=== PATIENT | female | born 1955 | race Caucasian/White ===

== ENCOUNTER → 2022-04-25 09:58 | Outpatient (CLI) | payer MEDICARE, SELFPAY ==
--- NOTE | ~2022-04-25 | XR_ITS ---
XR foot RT min 3V DATE: 04/25/2022 11:03 INDICATION: Right foot pain TECHNIQUE: 4 views COMPARISON: None FINDINGS: There is osteopenia. Os tibiale externum, normal variant. Very slight plantar calcaneal enthesopathy. No recent fracture or dislocation, periosteal reaction or bone destruction. No erosive change. IMPRESSION: Osteopenia Slight plantar calcaneal enthesopathy Reviewed, dictated and finalized at location A.
== END ==
PROVIDERS: PCP Physician Assistant; Visit Provider Physician Assistant
DX: M79.671 Pain in right foot (principal); M85.88 Other specified disorders of bone density and structure, other site; M77.31 Calcaneal spur, right foot
CPT/HCPCS: 73630

== ENCOUNTER 2022-05-31 21:22 | Emergency (ER) | payer MEDICARE, SELFPAY ==
[2022-05-31 21:26] VITALS: BP 138/72; PULSE 69; RESP 16; TEMP 36.8; O2SAT 98
--- NOTE | 2022-05-31 21:58 | ED.GENADULT ---
HPI - General Adult General Chief complaint: Wound/Laceration Stated complaint: insect bite ?? Time Seen by Provider: 05/31/22 21:57 History of Present Illness HPI narrative: 67-year-old female presented the emergency department for evaluation of an insect bite to her left lateral hip. Patient states she was mowing the grass when she felt a sting to her left hip. Patient became concerned because when she checked the wound she saw that it was a red area with a central white region. Patient states it does still feel like a sting. Related Data Allergies Allergy/AdvReac Type Severity Reaction Status Date / Time No Known Allergies Allergy Verified 05/31/22 21:23 Review of Systems Review of Systems: CONSTITUTIONAL: Denies fever, chills, or sweats. EYES: Denies visual changes, redness, or discharge. ENT: Denies rhinorrhea, congestion, sore throat, or otalgia. CARDIOVASCULAR: Denies chest pain, palpitations, or edema. RESPIRATORY: Denies cough or dyspnea. GASTROINTESTINAL: Denies abdominal pain, nausea, vomiting, or diarrhea. GENITOURINARY: Denies dysuria or hematuria. SKIN: See HPI MUSCULOSKELETAL: Denies back pain, joint pain, or myalgia. NEUROLOGIC: Denies headache, numbness, or weakness. PSYCHIATRIC: Denies anxiety or depression. [facility] Family History Family History (Updated 06/08/14 @ 07:13 by DOCTOR UNKNOWN) Mother Family history of elevated blood lipids Family history of hypothyroidism Social History Social History Smoking status: Never smoker Alcohol intake: never Exam Narrative: APPEARANCE: Well appearing, no pain, no distress, well-nourished. HEAD: normocephalic, atraumatic. RESPIRATORY: Airway patent, respirations nonlabored. Clear to auscultation bilaterally, no rales, rhonchi, wheezing. CARDIOVASCULAR: Regular rate and rhythm without murmurs rubs or gallops. ABDOMINAL: Soft, nontender, nondistended, normal bowel sounds MUSCULOSKELETAL: Moves all extremities. Strength/ROM intact, No edema, No calf tenderness. NEURO: Alert. Cranial nerves II through XII intact. Grossly intact SKIN: 1 cm area of erythema with a central 2 mm area of white PSYCHIATRIC: Normal affect/mood. Course Course Emergency Course: Central head was opened using an 18-gauge. Only serosanguineous fluid was drained. Wound was cleaned. Injection was applied. Patient was educated on wound care and on the importance of close follow-up. All questions and concerns were addressed. Vital Signs Vital signs: Vital Signs Temperature 98.3 F 05/31/22 21:26 Pulse Rate 69 05/31/22 21:26 Respiratory Rate 16 05/31/22 21:26 Blood Pressure 138/72 05/31/22 21:26 Pulse Oximetry 98 05/31/22 21:26 Oxygen Delivery Room Air 05/31/22 21:26 Temperature 98 F 05/31/22 22:15 Pulse Rate 69 05/31/22 21:26 Respiratory Rate 16 05/31/22 22:15 Blood Pressure 122/80 05/31/22 22:15 Pulse Oximetry 100 05/31/22 22:15 Oxygen Delivery Room Air 05/31/22 21:26 Medical Decision Making Vital Signs Vital Signs: Vital Signs Temperature 98.3 F 05/31/22 21:26 Pulse Rate 69 05/31/22 21:26 Respiratory Rate 16 05/31/22 21:26 Blood Pressure 138/72 05/31/22 21:26 Pulse Oximetry 98 05/31/22 21:26 Oxygen Delivery Room Air 05/31/22 21:26 Temperature 98 F 05/31/22 22:15 Pulse Rate 69 05/31/22 21:26 Respiratory Rate 16 05/31/22 22:15 Blood Pressure 122/80 05/31/22 22:15 Pulse Oximetry 100 05/31/22 22:15 Oxygen Delivery Room Air 05/31/22 21:26 Discharge Plan Discharge Clinical Impression: Insect bite Patient Disposition: Home, Self-Care Condition: Stable Instructions: Antibiotic Form, Insect Bite or Sting (ED) Additional Instructions: Wound care as directed. have close follow-up with your primary care physician. Follow-up/Referrals: Tucker,TOMAS Benavidez [Primary Care Provider] -
[2022-05-31 22:15] VITALS: BP 122/80; RESP 16; TEMP 36.6; O2SAT 100
== END 2022-05-31 22:17 | disposition home or self-care (01) ==
LOC: ANHED 22:10
PROVIDERS: Emergency Provider Emergency Medicine; PCP Physician Assistant
DX: S00.561A Insect bite (nonvenomous) of lip, initial encounter (principal); W57.XXXA Bitten or stung by nonvenomous insect and other nonvenomous arthropods, initial encounter
CPT/HCPCS: 99282

== ENCOUNTER 2024-04-30 10:13 | Emergency (ER) | payer MEDICARE, SELFPAY ==
[2024-04-30] VITALS (10 sets, daily range): BP systolic 130–154; BP diastolic 64–72; PULSE 49–56; RESP 12–19; TEMP 36.3; O2SAT 98–100
--- NOTE | ~2024-04-30 | CT_ITS ---
EXAMINATION: CTA chest abdomen pelvis DATE: 04/30/2024 12:09 CDT INDICATION: Concern for dissection. TECHNIQUE: Computed tomographic angiography (CTA) of the chest, abdomen, and pelvis was performed wit hout and with 100 mL Omnipaque-350 intravenous contrast. The dose-length product was 443.56 mGy-cm. M aximum intensity projection 3D-reconstructions of the aorta and other arteries were constructed by brandon olivo technologist on a separate workstation. Automated exposure control and iterative reconstruction coni hnique were employed. COMPARISON: CT abdomen dated 07/19/2008. FINDINGS: CHEST CTA: No evidence for aortic aneurysm or dissection. Heart size normal. No significant pleural or pericardi al effusion. No thoracic lymphadenopathy. There are breast implants which are partially calcified. No endobronchial lesions. No pneumothorax. No focal airspace consolidation. ABDOMEN AND PELVIS CTA: The liver, spleen, pancreas, adrenal glands and kidneys are unremarkable. Bladder is unremarkable. No evidence for aortic aneurysm or dissection. The renal arteries, SMA and celiac axis are widely paten t. The SADE is patent. Nonobstructive bowel gas pattern. No lymphadenopathy. Gallbladder is present. N o free air or free fluid. IMPRESSION: 1. No acute abnormality of the chest, abdomen or pelvis. Reviewed, dictated and finalized at location B.
[2024-04-30 11:15] LABS: Basophils Absolute Auto 0.1 K/mm3 (0.0-0.1); Basophils Percent Auto 0.6 % (0.2-1.2); Eosinophils Absolute Auto 0.4 K/mm3 (0-0.3); Eosinophils Percent Auto 3.6 % (0-4.4); Hematocrit 39.5 % (37.0-47.0); Hemoglobin 13.3 g/dL (12.0-15.0); Immature Granulocyte Absolute 0.06 K/mm3 (0.00-0.031); Immature Granulocyte Percent A 0.5 % (0-0.5); Lymphocytes Absolute Auto 2.53 K/mm3 (0.9-3.2); Lymphocytes Percent Auto 23.1 % (18.3-44.2); Mean Corpuscular HGB Conc 33.7 g/dl (32-36); Mean Corpuscular Hemoglobin 31.4 pg (26-34); Mean Corpuscular Volume 93.2 fl (80-100); Monocytes Absolute Auto 0.9 K/mm3 (0.1-0.6); Monocytes Percent Auto 8.6 % (2.6-8.5); Neutrophils Percent Auto 63.6 % (45.5-73.1); Platelet Count Result 322 k/mm3 (150-375); Red Blood Count 4.24 M/mm3 (4.2-5.4); Red Cell Distribution Width 14.1 % (11.5-14.5)
[2024-04-30 11:30] LABS: Alanine Aminotransferase 25 U/L (6-35); Albumin Level 4.1 g/dL (3.5-5.1); Alkaline Phosphatase 117 U/L (38-126); Anion Gap 7 mmol/L (4-12); Aspartate Amino Transferase 24 U/L (14-36); Bilirubin,Total 0.3 mg/dL (0.2-1.3); Blood Urea Nitrogen 13 mg/dL (7-17); Carbon Dioxide 29 mmol/L (22-30); Chloride 101 mmol/L (98-107); Estimated CRCL calculation 42 ml/min; Estimated Glomerular Filt Rate > 60; Glucose 94 mg/dL (65-110); Potassium 4.3 mmol/L (3.4-5.0); Sodium 137 mmol/L (137-145)
--- NOTE | 2024-04-30 11:44 | ECG_ITS ---
Test Date: 2024-04-30 12:13:18 Measurements Intervals [place] Rate: 50 P: 73 ID: 164 QRS: 42 QRSD: 77 T: 51 QT: 442 QTc: 404 Interpretive Statements SINUS BRADYCARDIA POSSIBLE LEFT ATRIAL ENLARGEMENT BASELINE ARTIFACT- I, II BORDERLINE ECG No previous ECG available for comparison Electronically Signed On 04-30-2024 15:24:34 CDT by Ezequiel Hedrick D.O.
--- NOTE | 2024-04-30 11:45 | ED.GENADULT ---
HPI - General Adult General Chief complaint: Unspecified Stated complaint: I had an episode last night Time Seen by Provider: 04/30/24 11:33 History of Present Illness HPI narrative: 68-year-old female presents emergency department for evaluation for some back tightness and some shortness of breath that occurred yesterday. Patient states she has been taking prednisone for the last few days due to poison demond reaction. Patient has had some persistent nausea over the last few days. Patient had just been using the riding lawnmower to cut the grass when she went inside never shower, while she was in the shower she had onset of this tightness into her back and some associated shortness of breath. Patient is unsure how long the symptoms lasted. 30 minutes after the symptoms and patient checked her blood pressure was found to be lower than her normal. Upon arrival emergency department patient denies any complaints at this time. Patient denies any chest pain, back pain, abdominal pain. Patient is present with her daughters. Related Data Allergies Allergy/AdvReac Type Severity Reaction Status Date / Time No Known Allergies Allergy Verified 05/31/22 21:23 Review of Systems Review of Systems: All systems reviewed & are unremarkable except as noted in HPI and below PMFSH Family History Family History (Updated 06/08/14 @ 07:13 by DOCTOR UNKNOWN) Mother Family history of elevated blood lipids Family history of hypothyroidism Social History Social History Smoking status: Never smoker Alcohol intake: never Exam Narrative: APPEARANCE: Well appearing, no pain, no distress, well-nourished. HEAD: normocephalic, atraumatic. EYES: PERRLA/EOMI, conjunctivae clear. NOSE: Normal no drainage EARS:TMS clear with good light reflex. THROAT: Pharynx clear, no exudate. NECK: Supple. No adenopathy, no masses. RESPIRATORY: Airway patent, respirations nonlabored. Clear to auscultation bilaterally, no rales, rhonchi, wheezing. CARDIOVASCULAR: Regular rate and rhythm without murmurs rubs or gallops. ABDOMINAL: Soft, nontender, nondistended, normal bowel sounds MUSCULOSKELETAL: Moves all extremities. Strength/ROM intact, No edema, No calf tenderness. NEURO: Alert. Cranial nerves II through XII intact. SKIN: Warm, dry. Normal Color Course Vital Signs Vital signs: Vital Signs Temperature 97.4 F L 04/30/24 10:15 Pulse Rate 56 L 04/30/24 10:15 Respiratory Rate 18 04/30/24 10:15 Blood Pressure 154/72 H 04/30/24 10:15 Pulse Oximetry 100 04/30/24 10:15 Oxygen Delivery Room Air 04/30/24 10:15 Temperature 97.4 F L 04/30/24 10:15 Pulse Rate 53 L 04/30/24 15:00 Respiratory Rate 14 04/30/24 15:00 Blood Pressure 130/64 04/30/24 13:01 Pulse Oximetry 100 04/30/24 15:00 Oxygen Delivery Room Air 04/30/24 10:15 Medical Decision Making MDM Narrative Medical decision making narrative: 60-year-old female presents emergency department for evaluation for episode back tightness last night. Patient is afebrile with a minor leukocytosis of 11.0 but patient is currently on steroids and patient has a stable hemoglobin of 13.3. Patient's INR is 0.9. Patient's CMP has no acute abnormalities and patient had negative serial troponins. UA shows no evidence infection. Serial EKG showed no evidence of acute STEMI. Due to the patient complaining some low blood pressure associated with the initial symptoms a CTA was ordered and chest abdomen pelvis CTA showed no acute findings. On re-evaluation patient states he does feel improved and denies any acute complaint. Differential Diagnosis Differential Diagnosis: Pneumonia, pulmonary embolism, ACS Vital Signs Vital Signs: Vital Signs Temperature 97.4 F L 04/30/24 10:15 Pulse Rate 56 L 04/30/24 10:15 Respiratory Rate 18 04/30/24 10:15 Blood Pressure 154/72 H 04/30/24 10:15 Pulse Oximetry 100 04/30/24 10:15 Oxygen Delivery Room Air 04/30/24 10:1
[2024-04-30 11:46] LABS: Appearance Urine Clear (Clear); Bacteria Urine None Seen /hpf; Bilirubin Urine Negative (Negative); Blood Urine Trace (Negative); Color Urine Yellow (Yellow); Glucose Urine UA Negative (Negative); Ketones Urine Negative (Negative); Leukocyte Esterase Ur 2+ LEU/UL (Negative); Nitrate Urine Negative (Negative); Non Pathogenic Casts 0-2; Protein Urine Negative (Negative); RBC Urine 0-2 /hpf (0-2); Specific Grav Ur 1.008 (1.001-1.035); Squamous Epithelial Cell Urine None Seen /hpf (Few); Urobilinogen Urine 0.2 mg/dL (<2.0); pH Urine 5.5 (5.0-9.0)
[2024-04-30 11:47] LABS: Add Urine Microscopic? YES
[2024-04-30 12:05] LABS: INR 0.9; Prothrombin Time 12.7 Seconds (11.1-14.7)
[2024-04-30 12:16] LABS: Troponin I < 0.012 ng/mL (0.000-0.034)
[2024-04-30 14:47] LABS: Troponin I < 0.012 ng/mL (0.000-0.034)
--- NOTE | 2024-04-30 14:47 | ECG_ITS ---
Test Date: 2024-04-30 14:44:23 Measurements Intervals [place] Rate: 51 P: 70 ND: 167 QRS: 48 QRSD: 69 T: 58 QT: 437 QTc: 406 Interpretive Statements SINUS BRADYCARDIA POSSIBLE LEFT ATRIAL ENLARGEMENT BASELINE ARTIFACT- I, II, III, AVR, AVL BORDERLINE ECG Compared to ECG 04/30/2024 12:13:18 No significant changes Electronically Signed On 04-30-2024 15:26:11 CDT by Ezequiel Hedrick D.O.
== END 2024-04-30 15:23 | disposition home or self-care (01) ==
PROVIDERS: Emergency Provider Emergency Medicine; PCP Physician Assistant
DX: M54.9 Dorsalgia, unspecified (principal); R07.89 Other chest pain; R94.31 Abnormal electrocardiogram [ECG] [EKG]; R00.1 Bradycardia, unspecified
CPT/HCPCS: 36415; 71275; 74174; 80053; 81001; 84484; 85025; 85610; 85730; 87086; 87088; 93005; 99284; Q9967

== ENCOUNTER 2024-06-27 09:44 | Outpatient (CLI) | payer MEDICARE, SELFPAY ==
--- NOTE | 2024-06-27 | EST_ITS ---
Patient Info Name: Baylee Gonzalez Age: 69 years : 1955 Gender: Female Ht: 62 in Wt: 140 lbs BSA: 1.68 m2 HR: 54 bpm BP: 148 / 79 mmHg Exam Date: 06/27/2024 10:09 AM Exam Location: Echo Lab Patient Status: Outpatient Admit Date: 06/27/2024 Staff Ordering Physician: TuckerReema PA-C Lieutenant Ballistics: Meli Irizarry RDCS Attending Provider: ИВАН STERN NP Exercise Technologist: Yandy Cast RDCS Nurse: Иван Stern APN Exam Type: CA stress echo Study Info Indications R06.00 - Dyspnea, unspecified Treadmill exercise stress echocardiogram is performed. Summary 1. Sinus bradycardia, otherwise normal ECG. 2. No abnormal ST/T wave changes with exercise. 3. Occasional PVCs and 1 ventricular couplet. 4. Normal left ventricular size and systolic function at rest. 5. Normal hyperdynamic response to exercise, no ischemic wall motion abnormalities. 6. Negative stress echo at 92% of age predicted maximum heart rate. Protocol: Roberto Stress ECG Details Stage: REST Duration (min): 0 min : 44 sec Speed (mph): 0.0 Grade (%): 0 HR (bpm): 53 SBP (mmHg): 148 DBP (mmHg): 79 METS: --- Stage: REST Duration (min): 10 min : 13 sec Speed (mph): 0.0 Grade (%): 0 HR (bpm): 83 SBP (mmHg): 148 DBP (mmHg): 79 METS: --- Stage: STAGE 1 Duration (min): 1 min : 0 sec Speed (mph): 1.7 Grade (%): 10 HR (bpm): 99 SBP (mmHg): 148 DBP (mmHg): 79 METS: --- Stage: STAGE 1 Duration (min): 2 min : 0 sec Speed (mph): 1.7 Grade (%): 10 HR (bpm): 116 SBP (mmHg): 148 DBP (mmHg): 79 METS: --- Stage: STAGE 1 Duration (min): 3 min : 0 sec Speed (mph): 1.7 Grade (%): 10 HR (bpm): 123 SBP (mmHg): 148 DBP (mmHg): 79 METS: --- Stage: STAGE 2 Duration (min): 1 min : 0 sec Speed (mph): 2.5 Grade (%): 12 HR (bpm): 137 SBP (mmHg): 148 DBP (mmHg): 79 METS: --- Stage: STAGE 2 Duration (min): 1 min : 10 sec Speed (mph): 2.5 Grade (%): 12 HR (bpm): 136 SBP (mmHg): 148 DBP (mmHg): 79 METS: --- Stage: RECOVERY Duration (min): 0 min : 49 sec Speed (mph): 0.0 Grade (%): 0 HR (bpm): 115 SBP (mmHg): 123 DBP (mmHg): 69 METS: --- Stage: RECOVERY Duration (min): 1 min : 49 sec Speed (mph): 0.0 Grade (%): 0 HR (bpm): 81 SBP (mmHg): 123 DBP (mmHg): 69 METS: --- Stage: RECOVERY Duration (min): 2 min : 49 sec Speed (mph): 0.0 Grade (%): 0 HR (bpm): 90 SBP (mmHg): 123 DBP (mmHg): 69 METS: --- Stage: RECOVERY Duration (min): 3 min : 49 sec Speed (mph): 0.0 Grade (%): 0 HR (bpm): 69 SBP (mmHg): 123 DBP (mmHg): 69 METS: --- Stage: RECOVERY Duration (min): 4 min : 26 sec Speed (mph): 0.0 Grade (%): 0 HR (bpm): 61 SBP (mmHg): 149 DBP (mmHg): 78 METS: --- Rest HR: 83 bpm Peak HR: 139 bpm Rest Sys BP: 148 mmHg Peak Sys BP: 149 mmHg Max Pred HR: 151 bpm % Max Pred HR: 92 % Target HR:
== END 2024-06-27 09:45 | disposition home or self-care (01) ==
LOC: ANHCARD 09:45
PROVIDERS: PCP Physician Assistant; Visit Provider Physician Assistant
DX: R06.00 Dyspnea, unspecified (principal); R00.1 Bradycardia, unspecified
CPT/HCPCS: 93351

== ENCOUNTER 2025-02-09 14:16 | Outpatient (CLI) | payer MEDICARE, SELFPAY ==
--- NOTE | ~2025-02-09 | US_ITS ---
EXAM: RENAL ULTRASOUND HISTORY: Other unspecified abn findings of blood chemistry COMPARISON: Reference is made to a CT examination of the chest abdomen and pelvis dated 04/30/2024 FINDINGS: RIGHT KIDNEY: 9.3 x 3.3 x 4.8 cm. The parenchyma of the right kidney is unremarkable in echogenicity. Prominence of the right renal pelvis is identified without cody hydronephrosis. LEFT KIDNEY: 9.8 x 4.4 x 4.2 cm No hydronephrosis or renal calculi. The parenchyma of the left kidney is unremarkable in echogenicity. BLADDER: The bladder is minimally distended, and otherwise unremarkable. Bilateral ureteral jets are visualized. IMPRESSION: Prominence of the right renal pelvis without cody hydronephrosis. The renal parenchyma is unremarkable bilaterally. No renal calculi. No sonographic findings to suggest medical renal disease. Reviewed, dictated and finalized at location A.
--- OUTSIDE RECORDS SUMMARY | 2025-02-09 15:02 | XMS_ITS | Clinical Summary ---
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 Gender Identity Not on file Sexual Orientation Not on file Obstetrics History Last Filed Vital Signs Vital Sign Reading Time Taken Comments Blood Pressure 126/78 12/28/2023 12:29 PM CDT Pulse 62 12/28/2023 12:29 PM CDT Temperature 36.8 C (98.3 F) 12/28/2023 12:29 PM CDT Respiratory Rate 18 12/28/2023 12:29 PM CDT Oxygen Saturation 98% 12/28/2023 12:29 PM CDT Inhaled Oxygen Concentration - - Weight 70.3 kg (155 lb) 12/28/2023 12:29 PM CDT Height 157.5 cm (5' 2 ) 12/28/2023 12:29 PM CDT Body Mass Index 28.35 12/28/2023 12:29 PM CDT Plan of Treatment Health Maintenance Due Date Last Done Comments Breast Cancer Screening-Mammogram 1955 Colon Cancer Screening-Colonoscopy 1955 Depression Screening 1955 Fall Risk Assessment 1955 Hepatitis C Screening 1955 Osteoporosis Screening-Bone Density Scan 1955 DTaP/Tdap/Td Vaccine (1 - Tdap) 1966 Hepatitis B Screening 1973 Pneumococcal vaccine 65+ (1 of 1 - PCV) 2005 Zoster Vaccine (1 of 2) 2005 Well Visit 65+ 2020 Influenza Vaccine (Season Ended) 2025 08/11/20 13, 07/25/2013 Insurance [employer] SENIOR SU[employer]MENT MEDICARE Care Teams Shank Taper Relationship Specialty Start Date End Date Unknown, Notinfile PCP - General 12/28/23
--- OUTSIDE RECORDS SUMMARY | 2025-02-09 15:02 | XMS_ITS | Referral Summary ---
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
--- OUTSIDE RECORDS SUMMARY | 2025-02-09 15:02 | XMS_ITS | Data Portability ---
[facility] [address] [place] [address] Care Team Providers Care Fisheries Officer Name Role Phone REEMA FELIPE Primary Care Provider Unavailab le Assessment No assessment recorded. Plan of Treatment Reminders Order Date Submit Date Provider Last Modified By Organization Details Last Modified Time Details Appointments ANY 15 2024 10:00A M VALERIANO Vallejo Not available Not available Not available Lab hepatic function panel, serum 2023 025 WILIAM Carolina, [address], [place], [address], 11/09/2024 07:08:39 BMP, serum or plasma 2023 025 WIILAM Carolina, [address], [place], [address], 11/09/2024 07:08:40 CBC w/ auto diff 2023 025 WILIAM Carolina, [address], [place], [address], 11/09/2024 07:08:41 lipid panel, serum 2023 025 WILIAM Carolina, [address], [place], [address], 11/09/2024 07:08:38 TSH + free T4, serum 2023 025 WILIAM Carolina, [address], [place], [address], 11/09/2024 07:08:37 T3, free, serum or plasma 2023 025 WILIAM Carolina, [address], [place], [address], 11/09/2024 07:08:42 hepatic function panel, serum 2023 024 WILIAM Carolina, [address], [place], [address], 07/13/2024 07:15:21 BMP, serum or plasma 2023 024 WILIAM Carolina, [address], [place], [address], 07/13/2024 07:15:21 lipid panel, serum 2023 024 WILIAM Carolina, [address], [place], [address], 07/13/2024 07:15:20 TSH + free T4, serum 2023 024 WILIAM Carolina, [address], [place], [address], 07/13/2024 07:15:20 T3, free, serum or plasma 2023 024 WILIAM Carolina, [address], [place], [address], 07/13/2024 07:15:22 CBC w/ auto diff 2023 024 WILIAM Carolina [address], [place], [address], 01/29/2024 12:37:58 hepatic function panel, serum 2023 024 WILIAM Carolina, [address], [place], [address], 01/29/2024 12:37:57 BMP, serum or plasma 2023 024 [facility], [address], [place], [address], 01/29/2024 12:37:58 lipid panel, serum 2023 024 [facility], [address], [place], [address], 01/29/2024 12:37:57 TSH + free T4, serum 2023 024 [facility], [address], [place], [address], 01/29/2024 12:37:56 Referral None recorded. Procedures None recorded. Surgeries None recorded. Imaging exercise stress echocardi ogram 2023 024 [facility] (Cardiology [facility]), [facility] [address], [place], [address], 07/08/2024 13:06:56 Medication Orders levothyro xine 88 mcg tablet 2023 025 [id number], [address] [place], [address], 11/10/2024 17:40:04 doxycycli ne hyclate 100 mg capsule 2023 024 [facility][id number], [address] [place], [address], 07/14/2024 11:59:17 Patient TargetsNo targets recorded. 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 Referring Physician: Reema Felipe, Internal Medicine, Encounter Date: 01/25/2025 Results Created Date Observation Date Name Description Value Unit Range Abnormal Flag Note LastModifiedBy Organization Detail LastModifiedTime 01/28/20 24 01/29/2024 TSH+F REE T4 TSH 0.041 uIU/m L 0.450- 4.500 below low normal Not Available [facility] ([facility]) [address], [place], [address], 01/29/2024 12:37:56 01/28/20 24 01/29/2024 TSH+F REE T4 T4,free(dire ct) 1.86 NG/dL 0.82-1 .77 above high normal Not Available [facility] ([facility]) [address] [place], [address], 01/29/2024 12:37:56 01/28/20 24 01/29/2024 LIPID PANEL cholesterol, total 216 mg/dL 100-19 9 above high normal Not Available [facility] ([facility]) [address] [place], [address], 01/29/2024 12:37:57 01/28/20 24 01/29/2024 LIPID PANEL triglyceride s 80 mg/dL 0-149 Not Available [facility]) [address] [place], [address], 01/29/2024 12:37:57 01/28/20 24 01/29/2024 LIPID PANEL HDL cholesterol 73 mg/dL >39 Not Available [facility]) [address] [place], [address], 01/29/2024 12:37:57 01/28/20 24 01/29/2024 LIPID PANEL VLDL cholesterol mercedes 14 mg/dL 5-40 Not Available [facility]) [address] [place], [address], 01/29/2024 12:37:57 01/28/20 24 01/29/2024 LIPID PANEL LDL chol calc ([facility]) 129 mg/dL 0-99 above high normal Not Available [facility] ([facility]) [address] [place], [address], 01/29/2024 12:37:57 01/28/20 24 01/29/2024 HEPAT IC FUNCT ION PANEL (7) protein, total 7.2 g/dL 6.0-8. 5 Not Available [facility] ([facility]) [address] [place], [address], 01/29/2024 12:37:57 01/28/20 24 01/29/2024 HEPAT IC FUNCT ION PANEL (7) albumin 4.6 g/dL 3.9-4. 9 Not Available [facility] ([facility]) [address] [place], [address], 01/29/2024 12:37:57 01/28/20 24 01/29/2024 HEPAT IC FUNCT ION PANEL (7) bilirubin, total 0.3 mg/dL 0.0-1. 2 Not Available [facility] ([facility]) [address] [place], [address], 01/29/2024 12:37:57 01/28/20 24 01/29/2024 HEPAT IC FUNCT ION PANEL (7) bilirubin, direct <0.10 mg/dL 0.00-0 .40 Not Available [facility] ([facility]) [address] [place], [address], 01/29/2024 12:37:57 01/28/20 24 01/29/2024 HEPAT IC FUNCT ION PANEL (7) alkaline phosphatase 106 IU/L 44-121 Not Available [facility]) [address] [place], [address], 01/29/2024 12:37:57 01/28/20 24 01/29/2024 HEPAT IC FUNCT ION PANEL (7) AST (SGOT) 22 IU/L 0-40 Not Available [facility] ([facility]) [address], [place], [address], 01/29/2024 12:37:57 01/28/20 24 01/29/2024 HEPAT IC FUNCT ION PANEL (7) ALT (SGPT) 17 IU/L 0-32 Not Available [facility] ([facility]) [address], [place], [address], 01/29/2024 12:37:57 01/28/20 24 01/29/2024 BMP7+ EGFR glucose 93 mg/dL 70-99 Not Available [facility] ([facility]) [address], [place], [address], 01/29/2024 12:37:58 01/28/20 24 01/29/2024 BMP7+ EGFR BUN 12 mg/dL 8-27 Not Available [facility] ([facility]) [address], [place], [address], 01/29/2024 12:37:58 01/28/20 24 01/29/2024 BMP7+ EGFR creatinine 0.87 mg/dL 0.57-1 .00 Not Available [facility] ([facility]) [address], [place], [address], 01/29/2024 12:37:58 01/28/20 24 01/29/2024 BMP7+ EGFR eGFR 73 mL/mi n/1.7 3 >59 Not Available [facility] ([facility]) [address], [place], [address], 01/29/2024 12:37:58 01/28/20 24 01/29/2024 BMP7+ EGFR sodium 141 mmol/ L 134-14 4 Not Available [facility] ([facility]) [address], [place], [address], 01/29/2024 12:37:58 01/28/20 24 01/29/2024 BMP7+ EGFR potassium 4.8 mmol/ L 3.5-5. 2 Not Available [facility] ([facility]) [address], [place], [address], 01/29/2024 12:37:58 01/28/20 24 01/29/2024 BMP7+ EGFR chloride 102 mmol/ L 96-106 Not Available [facility] ([facility]) [address], [place], [address], 01/29/2024 12:37:58 01/28/20 24 01/29/2024 BMP7+ EGFR carbon dioxide, total 24 mmol/ L 20-29 Not Available [facility] ([facility]) [address], [place], [address], 01/29/2024 12:37:58 01/28/20 24 01/29/2024 CBC WITH DIFFE RENTI AL/PL ATELE T WBC 7.2 x10e3 /uL 3.4-10 .8 Not Available [facility] ([facility]) [address] [place], [address], 01/29/2024 12:37:58 01/28/20 24 01/29/2024 CBC WITH DIFFE RENTI AL/PL ATELE T RBC 4.39 x10e6 /uL 3.77-5 .28 Not Available [facility] ([facility]) [address] [place], [address], 01/29/2024 12:37:58 01/28/20 24 01/29/2024 CBC WITH DIFFE RENTI AL/PL ATELE T hemoglobin 13.5 g/dL 11.1-1 5.9 Not Available [facility] ([facility]) [address] [place], [address], 01/29/2024 12:37:58 01/28/20 24 01/29/2024 CBC WITH DIFFE RENTI AL/PL ATELE T hematocrit 40.5 % 34.0-4 6.6 Not Available [facility] ([facility]) [address], [place], [address], 01/29/2024 12:37:58 01/28/20 24 01/29/2024 CBC WITH DIFFE RENTI AL/PL ATELE T MCV 92 fL 79-97 Not Available [facility] ([facility]) [address], [place], [address], 01/29/2024 12:37:58 01/28/20 24 01/29/2024 CBC WITH DIFFE RENTI AL/PL ATELE T MCH 30.8 pg 26.6-3 3.0 Not Available [facility] ([facility]) [address], [place], [address], 01/29/2024 12:37:58 01/28/20 24 01/29/2024 CBC WITH DIFFE RENTI AL/PL ATELE T MCHC 33.3 g/dL 31.5-3 5.7 Not Available [facility] ([facility]) [address], [place], [address], 01/29/2024 12:37:58 01/28/20 24 01/29/2024 CBC WITH DIFFE RENTI AL/PL ATELE T RDW 12.8 % 11.7-1 5.4 Not Available [facility] ([facility]) [address], [place], [address], 01/29/2024 12:37:58 01/28/20 24 01/29/2024 CBC WITH DIFFE RENTI AL/PL ATELE T platelets 333 x10e3 /uL 150-45 0 Not Available [facility] ([facility]) [address], [place], [address], 01/29/2024 12:37:58 01/28/20 24 01/29/2024 CBC WITH DIFFE RENTI AL/PL ATELE T neutrophils 48 % notest ab. Not Available [facility] ([facility]) [address], [place], [address], 01/29/2024 12:37:58 01/28/20 24 01/29/2024 CBC WITH DIFFE RENTI AL/PL ATELE T lymphs 37 % notest ab. Not Available [facility] ([facility]) [address], [place], [address], 01/29/2024 12:37:58 01/28/20 24 01/29/2024 CBC WITH DIFFE RENTI AL/PL ATELE T monocytes 9 % notest ab. Not Available [facility] ([facility]) [address], [place], [address], 01/29/2024 12:37:58 01/28/20 24 01/29/2024 CBC WITH DIFFE RENTI AL/PL ATELE T eos 5 % notest ab. Not Available [facility] ([facility]) [address], [place], [address], 01/29/2024 12:37:58 01/28/20 24 01/29/2024 CBC WITH DIFFE RENTI AL/PL ATELE T basos 1 % notest ab. Not Available [facility] ([facility]) [address] [place], [address], 01/29/2024 12:37:58 01/28/20 24 01/29/2024 CBC WITH DIFFE RENTI AL/PL ATELE T neutrophils (absolute) 3.5 x10e3 /uL 1.4-7. 0 Not Available [facility] ([facility]) [address] [place], [address], 01/29/2024 12:37:58 01/28/20 24 01/29/2024 CBC WITH DIFFE RENTI AL/PL ATELE T lymphs (absolute) 2.6 x10e3 /uL 0.7-3. 1 Not Available [facility] ([facility]) [address] [facility] [place], [address], 01/29/2024 12:37:58 01/28/20 24 01/29/2024 CBC WITH DIFFE RENTI AL/PL ATELE T monocytes(ab solute) 0.6 x10e3 /uL 0.1-0. 9 Not Available [facility] ([facility]) [address] [place], [address], 01/29/2024 12:37:58 01/28/20 24 01/29/2024 CBC WITH DIFFE RENTI AL/PL ATELE T eos (absolute) 0.3 x10e3 /uL 0.0-0. 4 Not Available [facility] ([facility]) [address], [place], [address], 01/29/2024 12:37:58 01/28/20 24 01/29/2024 CBC WITH DIFFE RENTI AL/PL ATELE T baso (absolute) 0.1 x10e3 /uL 0.0-0. 2 Not Available [facility] ([facility]) [address] [place], [address], 01/29/2024 12:37:58 01/28/20 24 01/29/2024 CBC WITH DIFFE RENTI AL/PL ATELE T immature granulocytes 0 % notest ab. Not Available [facility] ([facility]) [address] [place], [address], 01/29/2024 12:37:58 01/28/20 24 01/29/2024 CBC WITH DIFFE RENTI AL/PL ATELE T immature grans (abs) 0.0 x10e3 /uL 0.0-0. 1 Not Available [facility] ([facility]) [address] [place], [address], 01/29/2024 12:37:58 07/12/20 24 07/13/2024 TSH+F REE T4 TSH 2.300 uIU/m L 0.450- 4.500 Not Available [facility] ([facility]) [address], [place], [address], 07/13/2024 07:15:19 07/12/2007/13/2024 TSH+F REE T4 T4,free(dire ct) 1.17 NG/dL 0.82-1 .77 Not Available [facility] ([facility]) [address], [place], [address], 07/13/2024 07:15:19 07/12/2007/13/2024 LIPID PANEL cholesterol, total 248 mg/dL 100-19 9 above high normal Not Available [facility] ([facility]) [address] [place], [address], 07/13/2024 07:15:20 07/12/20 24 07/13/2024 LIPID PANEL triglyceride s 91 mg/dL 0-149 Not Available [facility] ([facility]) [address] [place], [address], 07/13/2024 07:15:20 07/12/2007/13/2024 LIPID PANEL HDL cholesterol 70 mg/dL >39 Not Available [facility] ([facility]) [address] [place], [address], 07/13/2024 07:15:20 07/12/20 24 07/13/2024 LIPID PANEL VLDL cholesterol mercedes 16 mg/dL 5-40 Not Available [facility] ([facility]) [address] [place], [address], 07/13/2024 07:15:20 07/12/2007/13/2024 LIPID PANEL LDL chol calc ([facility]) 162 mg/dL 0-99 above high normal Not Available [facility] ([facility]) [address] [place], [address], 07/13/2024 07:15:20 07/12/20 24 07/13/2024 HEPAT IC FUNCT ION PANEL (7) protein, total 6.4 g/dL 6.0-8. 5 Not Available [facility] ([facility]) [address] [place], [address], 07/13/2024 07:15:21 07/12/20 24 07/13/2024 HEPAT IC FUNCT ION PANEL (7) albumin 4.2 g/dL 3.9-4. 9 Not Available [facility] ([facility]) [address], [place], [address], 07/13/2024 07:15:21 07/12/2007/13/2024 HEPAT IC FUNCT ION PANEL (7) bilirubin, total 0.3 mg/dL 0.0-1. 2 Not Available [facility] ([facility]) [address] [place], [address], 07/13/2024 07:15:21 07/12/2007/13/2024 HEPAT IC FUNCT ION PANEL (7) bilirubin, direct <0.10 mg/dL 0.00-0 .40 Not Available [facility] ([facility]) [address] [place], [address], 07/13/2024 07:15:21 07/12/20 24 07/13/2024 HEPAT IC FUNCT ION PANEL (7) alkaline phosphatase 109 IU/L 44-121 Not Available [facility]) [address], [place], [address], 07/13/2024 07:15:21 07/12/20 24 07/13/2024 HEPAT IC FUNCT ION PANEL (7) AST (SGOT) 18 IU/L 0-40 Not Available [facility] ([facility]) [address] [place], [address], 07/13/2024 07:15:21 07/12/20 24 07/13/2024 HEPAT IC FUNCT ION PANEL (7) ALT (SGPT) 12 IU/L 0-32 Not Available [facility] ([facility]) [address], [place], [address], 07/13/2024 07:15:21 07/12/2007/13/2024 BMP7+ EGFR glucose 88 mg/dL 70-99 Not Available [facility] ([facility]) [address], [place], [address], 07/13/2024 07:15:21 07/12/2007/13/2024 BMP7+ EGFR BUN 18 mg/dL 8-27 Not Available [facility] ([facility]) [address], [place], [address], 07/13/2024 07:15:21 07/12/2007/13/2024 BMP7+ EGFR creatinine 0.89 mg/dL 0.57-1 .00 Not Available [facility] ([facility]) [address], [place], [address], 07/13/2024 07:15:21 07/12/2007/13/2024 BMP7+ EGFR eGFR 70 mL/mi n/1.7 3 >59 Not Available [facility] ([facility]) [address], [place], [address], 07/13/2024 07:15:21 07/12/2007/13/2024 BMP7+ EGFR sodium 141 mmol/ L 134-14 4 Not Available [facility] ([facility]) [address], [place], [address], 07/13/2024 07:15:21 07/12/2007/13/2024 BMP7+ EGFR potassium 4.8 mmol/ L 3.5-5. 2 Not Available [facility] ([facility]) [address], [place], [address], 07/13/2024 07:15:21 07/12/2007/1307/13/2024 BMP7+ EGFR chloride 106 mmol/ L 96-106 Not Available [facility] ([facility]) [address] [place], [address], 07/13/2024 07:15:21 07/12/20 24 07/13/2024 BMP7+ EGFR carbon dioxide, total 23 mmol/ L 20-29 Not Available [facility] ([facility]) [address] [place], [address], 07/13/2024 07:15:21 07/12/20 24 07/13/2024 TRIIO DOTHY KAT E (T3), FREE triiodothyro nine (T3), free 2.1 pg/mL 2.0-4. 4 Not Available [facility] ([facility]) [address] [place], [address], 07/13/2024 07:15:22 11/08/19 25 11/09/2024 TSH+F REE T4 TSH 0.395 uIU/m L 0.450- 4.500 below low normal Not Available [facility] ([facility]) [address] [place], [address], 11/09/2024 07:08:37 11/08/19 25 11/09/2024 TSH+F REE T4 T4,free(dire ct) 1.67 NG/dL 0.82-1 .77 Not Available [facility] ([facility]) [address] [place], [address], 11/09/2024 07:08:37 11/08/19 25 11/09/2024 LIPID PANEL cholesterol, total 225 mg/dL 100-19 9 above high normal Not Available [facility] ([facility]) [address] [place], [address], 11/09/2024 07:08:38 11/08/19 25 11/09/2024 LIPID PANEL triglyceride s 83 mg/dL 0-149 Not Available [facility] ([facility]) [address] [place], [address], 11/09/2024 07:08:38 11/08/1911/09/2024 LIPID PANEL HDL cholesterol 71 mg/dL >39 Not Available [facility] ([facility]) [address] [facility] [place], [address], 11/09/2024 07:08:38 11/08/19 25 11/09/2024 LIPID PANEL VLDL cholesterol mercedes 14 mg/dL 5-40 Not Available [facility] ([facility]) [address] [place], [address], 11/09/2024 07:08:38 11/08/1911/09/2024 LIPID PANEL LDL chol calc ([facility]) 140 mg/dL 0-99 above high normal Not Available [facility] ([facility]) [address] [place], [address], 11/09/2024 07:08:38 11/08/1911/09/2024 HEPAT IC FUNCT ION PANEL (7) protein, total 4.2 g/dL 6.0-8. 5 alert low Not Available [facility] ([facility]) [address] [place], [address], 11/09/2024 07:08:39 11/08/1911/09/2024 HEPAT IC FUNCT ION PANEL (7) albumin 4.0 g/dL 3.9-4. 9 Not Available [facility] ([facility]) [address] [facility] [place], [address], 11/09/2024 07:08:39 11/08/1911/09/2024 HEPAT IC FUNCT ION PANEL (7) bilirubin, total 0.2 mg/dL 0.0-1. 2 Not Available [facility] ([facility]) [address] [place], [address], 11/09/2024 07:08:39 11/08/19 25 11/09/2024 HEPAT IC FUNCT ION PANEL (7) bilirubin, direct 0.09 mg/dL 0.00-0 .40 Not Available [facility] ([facility]) [address] [place], [address], 11/09/2024 07:08:39 11/08/19 25 11/09/2024 HEPAT IC FUNCT ION PANEL (7) alkaline phosphatase 113 IU/L 44-121 Not Available [facility] ([facility]) [address] [facility] [place], [address], 11/09/2024 07:08:39 11/08/19 25 11/09/2024 HEPAT IC FUNCT ION PANEL (7) AST (SGOT) 17 IU/L 0-40 Not Available [facility] ([facility]) [address] [place], [address], 11/09/2024 07:08:39 11/08/19 25 11/09/2024 HEPAT IC FUNCT ION PANEL (7) ALT (SGPT) 12 IU/L 0-32 Not Available [facility] ([facility]) [address] [place], [address], 11/09/2024 07:08:39 11/08/19 25 11/09/2024 BMP7+ EGFR glucose 88 mg/dL 70-99 Not Available [facility] ([facility]) [address] [place], [address], 11/09/2024 07:08:40 11/08/19 25 11/09/2024 BMP7+ EGFR BUN 15 mg/dL 8-27 Not Available [facility] ([facility]) [address] [place], [address], 11/09/2024 07:08:40 11/08/19 25 11/09/2024 BMP7+ EGFR creatinine 0.97 mg/dL 0.57-1 .00 Not Available [facility] ([facility]) [address], [place], [address], 11/09/2024 07:08:40 11/08/19 25 11/09/2024 BMP7+ EGFR eGFR 63 mL/mi n/1.7 3 >59 Not Available [facility] ([facility]) [address], [place], [address], 11/09/2024 07:08:40 11/08/19 25 11/09/2024 BMP7+ EGFR sodium 141 mmol/ L 134-14 4 Not Available [facility] ([facility]) [address], [place], [address], 11/09/2024 07:08:40 11/08/19 25 11/09/2024 BMP7+ EGFR potassium 4.8 mmol/ L 3.5-5. 2 Not Available [facility] ([facility]) [address], [place], [address], 11/09/2024 07:08:40 11/08/19 25 11/09/2024 BMP7+ EGFR chloride 105 mmol/ L 96-106 Not Available [facility] ([facility]) [address], [place], [address], 11/09/2024 07:08:40 11/08/19 25 11/09/2024 BMP7+ EGFR carbon dioxide, total 24 mmol/ L 20- Not Available [facility] ([facility]) [address] [place], [address], 11/09/2024 07:08:40 11/08/19 25 11/08/2024 CBC WITH DIFFE RENTI AL/PL ATELE T WBC 7.5 x10e3 /uL 3.4-10 .8 Not Available [facility] ([facility]) [address] [place], [address], 11/09/2024 07:08:41 01/28/11/08/2024 CBC WITH DIFFE RENTI AL/PL ATELE T RBC 3.94 x10e6 /uL 3.77-5 .28 Not Available [facility] ([facility]) [address], [place], [address], 11/09/2024 07:08:41 11/08/19 25 11/08/2024 CBC WITH DIFFE RENTI AL/PL ATELE T hemoglobin 12.1 g/dL 11.1-1 5.9 Not Available [facility] ([facility]) [address] [place], [address], 11/09/2024 07:08:41 11/08/1911/08/2024 CBC WITH DIFFE RENTI AL/PL ATELE T hematocrit 36.3 % 34.0-4 6.6 Not Available [facility] ([facility]) [address] [place], [address], 11/09/2024 07:08:41 11/08/1911/08/2024 CBC WITH DIFFE RENTI AL/PL ATELE T MCV 92 fL 79-97 Not Available [facility] ([facility]) [address] [place], [address], 11/09/2024 07:08:41 11/08/1911/08/2024 CBC WITH DIFFE RENTI AL/PL ATELE T MCH 30.7 pg 26.6-3 3.0 Not Available [facility] ([facility]) [address] [place], [address], 11/09/2024 07:08:41 11/08/19 25 11/08/2024 CBC WITH DIFFE RENTI AL/PL ATELE T MCHC 33.3 g/dL 31.5-3 5.7 Not Available [facility] ([facility]) [address] [place], [address], 11/09/2024 07:08:41 11/08/19 25 11/08/2024 CBC WITH DIFFE RENTI AL/PL ATELE T RDW 12.5 % 11.7-1 5.4 Not Available [facility] ([facility]) [address] [facility], [place], [address], 11/09/2024 07:08:41 11/08/19 25 11/08/2024 CBC WITH DIFFE RENTI AL/PL ATELE T platelets 315 x10e3 /uL 150-45 0 Not Available [facility] ([facility]) [address], [place], [address], 11/09/2024 07:08:41 11/08/1911/08/2024 CBC WITH DIFFE RENTI AL/PL ATELE T neutrophils 50 % notest ab. Not Available [facility] ([facility]) [address] [address] [address] [facility], [place], [address], 11/09/2024 07:08:41 11/08/19 25 11/08/2024 CBC WITH DIFFE RENTI AL/PL ATELE T lymphs 34 % notest ab. Not Available [facility] ([facility]) [address] [facility], [place], [address], 11/09/2024 07:08:41 11/08/19 25 11/08/2024 CBC WITH DIFFE RENTI AL/PL ATELE T monocytes 8 % notest ab. Not Available [facility] ([facility]) [address] [facility], [place], [address], 11/09/2024 07:08:41 11/08/19 25 11/08/2024 CBC WITH DIFFE RENTI AL/PL ATELE T eos 6 % notest ab. Not Available [facility] ([facility]) [address], [place], [address], 11/09/2024 07:08:41 11/08/19 25 11/08/2024 CBC WITH DIFFE RENTI AL/PL ATELE T basos 2 % notest ab. Not Available [facility] ([facility]) [address] [facility], [place], [address], 11/09/2024 07:08:41 11/08/1911/08/2024 CBC WITH DIFFE RENTI AL/PL ATELE T neutrophils (absolute) 3.8 x10e3 /uL 1.4-7. 0 Not Available [facility] ([facility]) [address] [facility], [place], [address], 11/09/2024 07:08:41 11/08/19 25 11/08/2024 CBC WITH DIFFE RENTI AL/PL ATELE T lymphs (absolute) 2.5 x10e3 /uL 0.7-3. 1 Not Available [facility] ([facility]) [address] [facility], [place], [address], 11/09/2024 07:08:41 11/08/19 25 11/08/2024 CBC WITH DIFFE RENTI AL/PL ATELE T monocytes(ab solute) 0.6 x10e3 /uL 0.1-0. 9 Not Available [facility] ([facility]) [address] [place], [address], 11/09/2024 07:08:41 11/08/19 25 11/08/2024 CBC WITH DIFFE RENTI AL/PL ATELE T eos (absolute) 0.4 x10e3 /uL 0.0-0. 4 Not Available [facility] ([facility]) [address] [facility], [place], [address], 11/09/2024 07:08:41 11/08/19 25 11/08/2024 CBC WITH DIFFE RENTI AL/PL ATELE T baso (absolute) 0.1 x10e3 /uL 0.0-0. 2 Not Available [facility] ([facility]) [address] [place], [address], 11/09/2024 07:08:41 01/28/11/08/2024 CBC WITH DIFFE RENTI AL/PL ATELE T immature granulocytes 0 % notest ab. Not Available [facility] ([facility]) [address] [place], [address], 11/09/2024 07:08:41 11/08/1911/08/2024 CBC WITH DIFFE RENTI AL/PL ATELE T immature grans (abs) 0.0 x10e3 /uL 0.0-0. 1 Not Available [facility] ([facility]) [address] [place], [address], 11/09/2024 07:08:41 11/08/1911/09/2024 TRIIO DOTHY KAT E (T3), FREE triiodothyro nine (T3), free 2.4 pg/mL 2.0-4. 4 Not Available [facility] ([facility]) [address] [place], [address], 11/09/2024 07:08:42 01/19/2001/19/2025 TSH+F REE T4 TSH 3.220 uIU/m L 0.450- 4.500 Not Available [facility] ([facility]) [address] [place], [address], 01/19/2025 07:12:44 01/19/2001/19/2025 TSH+F REE T4 T4,free(dire ct) 1.40 NG/dL 0.82-1 .77 Not Available [facility] ([facility]) [address] [place], [address], 01/19/2025 07:12:44 01/19/20 25 01/19/2025 HEPAT IC FUNCT ION PANEL (7) protein, total 6.7 g/dL 6.0-8. 5 Not Available [facility] ([facility]) [address] [place], [address], 01/19/2025 07:12:45 01/19/20 25 01/19/2025 HEPAT IC FUNCT ION PANEL (7) albumin 4.4 g/dL 3.9-4. 9 Not Available [facility] ([facility]) [address] [place], [address], 01/19/2025 07:12:45 01/19/20 25 01/19/2025 HEPAT IC FUNCT ION PANEL (7) bilirubin, total 0.4 mg/dL 0.0-1. 2 Not Available [facility] ([facility]) [address] [place], [address], 01/19/2025 07:12:45 01/19/2001/19/2025 HEPAT IC FUNCT ION PANEL (7) bilirubin, direct 0.12 mg/dL 0.00-0 .40 Not Available [facility] ([facility]) [address] [place], [address], 01/19/2025 07:12:45 01/19/20 25 01/19/2025 HEPAT IC FUNCT ION PANEL (7) alkaline phosphatase 124 IU/L 44-121 above high normal Not Available [facility] ([facility]) [address] [place], [address], 01/19/2025 07:12:45 01/19/20 25 01/19/2025 HEPAT IC FUNCT ION PANEL (7) AST (SGOT) 22 IU/L 0-40 Not Available [facility] ([facility]) [address] [place], [address], 01/19/2025 07:12:45 01/19/20 25 01/19/2025 HEPAT IC FUNCT ION PANEL (7) ALT (SGPT) 14 IU/L 0-32 Not Available [facility] ([facility]) [address] [place], [address], 01/19/2025 07:12:45 01/19/20 25 01/19/2025 BMP7+ EGFR glucose 86 mg/dL 70-99 Not Available [facility] ([facility]) [address] [place], [address], 01/19/2025 07:12:46 01/19/2001/19/2025 BMP7+ EGFR BUN 18 mg/dL 8-27 Not Available [facility] ([facility]) [address] [place], [address], 01/19/2025 07:12:46 01/19/2001/19/2025 BMP7+ EGFR creatinine 1.03 mg/dL 0.57-1 .00 above high normal Not Available [facility] ([facility]) [address] [place], [address], 01/19/2025 07:12:46 01/19/2001/19/2025 BMP7+ EGFR eGFR 59 mL/mi n/1.7 3 >59 below low normal Not Available [facility] ([facility]) [address] [place], [address], 01/19/2025 07:12:46 01/19/2001/19/2025 BMP7+ EGFR sodium 142 mmol/ L 134-14 4 Not Available [facility] ([facility]) [address] [place], [address], 01/19/2025 07:12:46 01/19/2001/19/2025 BMP7+ EGFR potassium 4.7 mmol/ L 3.5-5. 2 Not Available [facility] ([facility]) [address] [place], [address], 01/19/2025 07:12:46 01/19/2001/19/2025 BMP7+ EGFR chloride 103 mmol/ L 96-106 Not Available [facility] ([facility]) [address] [place], [address], 01/19/2025 07:12:46 01/19/20 25 01/19/2025 BMP7+ EGFR carbon dioxide, total 23 mmol/ L 20-29 Not Available [facility] ([facility]) [address] [facility], [place], [address], 01/19/2025 07:12:46 01/19/20 25 01/18/2025 CBC WITH DIFFE RENTI AL/PL ATELE T WBC 7.6 x10e3 /uL 3.4-10 .8 Not Available [facility] ([facility]) [address] [facility], [place], [address], 01/19/2025 07:12:47 01/19/20 25 01/18/2025 CBC WITH DIFFE RENTI AL/PL ATELE T RBC 4.15 x10e6 /uL 3.77-5 .28 Not Available [facility] ([facility]) [address] [place], [address], 01/19/2025 07:12:47 01/19/20 25 01/18/2025 CBC WITH DIFFE RENTI AL/PL ATELE T hemoglobin 12.8 g/dL 11.1-1 5.9 Not Available [facility] ([facility]) [address] [facility], [place], [address], 01/19/2025 07:12:47 01/19/20 25 01/18/2025 CBC WITH DIFFE RENTI AL/PL ATELE T hematocrit 38.8 % 34.0-4 6.6 Not Available [facility] ([facility]) [address] [place], [address], 01/19/2025 07:12:47 01/19/20 25 01/18/2025 CBC WITH DIFFE RENTI AL/PL ATELE T MCV 94 fL 79-97 Not Available [facility] ([facility]) [address] [facility], [place], [address], 01/19/2025 07:12:47 01/19/20 25 01/18/2025 CBC WITH DIFFE RENTI AL/PL ATELE T MCH 30.8 pg 26.6-3 3.0 Not Available [facility] ([facility]) [address] [facility], [place], [address], 01/19/2025 07:12:47 01/19/20 25 01/18/2025 CBC WITH DIFFE RENTI AL/PL ATELE T MCHC 33.0 g/dL 31.5-3 5.7 Not Available [facility] ([facility]) [address] [facility], [place], [address], 01/19/2025 07:12:47 01/19/20 25 01/18/2025 CBC WITH DIFFE RENTI AL/PL ATELE T RDW 13.1 % 11.7-1 5.4 Not Available [facility] ([facility]) [address] [facility], [place], [address], 01/19/2025 07:12:47 01/19/20 25 01/18/2025 CBC WITH DIFFE RENTI AL/PL ATELE T platelets 314 x10e3 /uL 150-45 0 Not Available [facility] ([facility]) [address] [place], [address], 01/19/2025 07:12:47 01/19/20 25 01/18/2025 CBC WITH DIFFE RENTI AL/PL ATELE T neutrophils 52 % notest ab. Not Available [facility] ([facility]) [address] [place], [address], 01/19/2025 07:12:47 01/19/20 25 01/18/2025 CBC WITH DIFFE RENTI AL/PL ATELE T lymphs 36 % notest ab. Not Available [facility] ([facility]) [address] [place], [address], 01/19/2025 07:12:47 01/19/20 25 01/18/2025 CBC WITH DIFFE RENTI AL/PL ATELE T monocytes 8 % notest ab. Not Available [facility] ([facility]) [address] [facility], [place], [address], 01/19/2025 07:12:47 01/19/20 25 01/18/2025 CBC WITH DIFFE RENTI AL/PL ATELE T eos 3 % notest ab. Not Available [facility] ([facility]) [address] [facility], [place], [address], 01/19/2025 07:12:47 01/19/20 25 01/18/2025 CBC WITH DIFFE RENTI AL/PL ATELE T basos 1 % notest ab. Not Available [facility] ([facility]) [address] [facility], [place], [address], 01/19/2025 07:12:47 01/19/20 25 01/18/2025 CBC WITH DIFFE RENTI AL/PL ATELE T neutrophils (absolute) 3.9 x10e3 /uL 1.4-7. 0 Not Available [facility] ([facility]) [address] [place], [address], 01/19/2025 07:12:47 01/19/20 25 01/18/2025 CBC WITH DIFFE RENTI AL/PL ATELE T lymphs (absolute) 2.8 x10e3 /uL 0.7-3. 1 Not Available [facility] ([facility]) [address] [place], [address], 01/19/2025 07:12:47 01/19/20 25 01/18/2025 CBC WITH DIFFE RENTI AL/PL ATELE T monocytes(ab solute) 0.6 x10e3 /uL 0.1-0. 9 Not Available [facility] ([facility]) [address] [facility], [place], [address], 01/19/2025 07:12:47 01/19/20 25 01/18/2025 CBC WITH DIFFE RENTI AL/PL ATELE T eos (absolute) 0.2 x10e3 /uL 0.0-0. 4 Not Available [facility] ([facility]) [address] [place], [address], 01/19/2025 07:12:47 01/19/20 25 01/18/2025 CBC WITH DIFFE RENTI AL/PL ATELE T baso (absolute) 0.1 x10e3 /uL 0.0-0. 2 Not Available [facility] ([facility]) [address] [facility], [place], [address], 01/19/2025 07:12:47 01/19/20 25 01/18/2025 CBC WITH DIFFE RENTI AL/PL ATELE T immature granulocytes 0 % notest ab. Not Available [facility] ([facility]) [address] [facility], [place], [address], 01/19/2025 07:12:47 01/19/20 25 01/18/2025 CBC WITH DIFFE RENTI AL/PL ATELE T immature grans (abs) 0.0 x10e3 /uL 0.0-0. 1 Not Available [facility] ([facility]) [address] [place], [address], 01/19/2025 07:12:47 01/19/20 25 01/19/2025 TRIIO DOTHY KAT E (T3), FREE triiodothyro nine (T3), free 2.5 pg/mL 2.0-4. 4 Not Available [facility] ([facility]) [address] [place], [address], 01/19/2025 07:12:48 04/30/20 24 04/30/2024 CT, angio gram, chest + abdom en + pelvi s, w/ contr ast No observ ation record ed. [email or web address] [place] [address], [place], [address], 05/23/2024 10:39:07/08/20 24 06/27/2024 exerc isgeovani bryantbill s echoc ardio gram No observ ation record ed. [facility] ([facility]) [address], [place], [address], 07/08/2024 20:35:50 Result Notes None recorded. Problems Name Problem SNOMED Code Status Onset Date Resolution Date Notes Provider Name and Address Organization Details Recorded Time Hypothyroidism 27190422 Active 2023 VALERIANO Vallejo Attn: Accountin g,[address], [place], [address], [place] [facility] 4 17:53:14 Hyperlipidemia 32064984 Active 2023 VALERIANO Vallejo Attn: Accountin g,[address] [facility], [place], [address], [place] [facility] 4 17:53:15 Long-term drug therapy Active 2023 VALERIANO Vallejo Attn: Accountin g,[address], [place], [address], [place] [facility] 4 17:53:17 Body mass index 25-29 - overweight 697993968 Active 2023 VALERIANO Vallejo Attn: Accountin g,[address], [place], [address], [place] [facility] 4 17:54:21 Overweight 116418902 Active 2023 VALERIANO Vallejo Attn: Accountin g,[address], [place], [address], [place] [facility] 4 15:42:06 Elevated blood-pressure reading without diagnosis of hypertension 776752341 Active 2023 VALERIANO Vallejo Attn: Accountin g,[address], [place], [address], [place] [facility] 4 15:42:29 Mammogram declined 638102114 Active 2024 VALERIANO Vallejo Attn: Chris quintana,[address], [place], [address], [facility] 15:02:17 Problem Notes None recorded. Procedures Surgical History Date Name Laterality Status Provider Name and Address Organization Details Recorded Time Eye Surgery completed Deborah Wild MA [facility] 01/13/2024 10:21:08 Breast Surgery completed Deborah Wild MA [facility] 01/13/2024 10:21:14 excision of bilateral fallopian tubes and ovaries completed Deborah Wild MA [facility] 01/13/2024 10:21:39 Imaging Results Imaging Date Name Status LastModified by Organization Details LastModified Time 04/30/2024 CT, angiogram, chest + abdomen + pelvis, w/ contrast completed [address], [address], 05/23/2024 10:39:04 06/27/2024 exercise stress echocardiogram completed [facility] (Cardiology [facility]) [address] [place] [address], [address], 07/08/2024 20:35:50 Procedure Notes None recorded. Medical Equipment None Reported. Allergies No known drug allergies Medications Name Sig Start Date Stop Date Status Note LastModified by Organization Details LastModified Time doxycycline hyclate 100 mg capsule TAKE 1 CAPSULE TWICE A DAY BY ORAL ROUTE WITH MEAL(S). 07/14 completed Not Available Not Available Not Available azithromyci n 250 mg tablet TAKE 2 TABLETS BY MOUTH TODAY, THEN TAKE 1 TABLET DAILY FOR 4 DAYS DIRECTED 01/12 completed Not Available Not Available Not Available prednisone 20 mg tablet TAKE 3 TABS BY MOUTH DAILY X 3 DAYS, 2 TABS DAILY X 2 DAYS, 1 TAB X 2 DAYS 05/18 completed Not Available Not Available Not Available triamcinolo ne acetonide 0.1 % topical cream APPLY A THIN LAYER TO THE AFFECTED AREA(S) ON TORSO TWICE DAILY NEEDED active Not Available Not Available No t Available levothyroxi ne 75 mcg tablet Take 1 tablet every day by oral route for 90 days. active Not Available Not Available No t Available levothyroxi ne 88 mcg tablet TAKE 1 TABLET EVERY DAY BY ORAL ROUTE IN THE MORNING. 11/10 completed Not Available Not Available Not Available betamethaso ne dipropionat e 0.05 % topical cream APPLY 1 APPLICATI ON (TOPICAL) 2 TIMES PER DAY NEEDED FOR 7 DAYS 05/18 completed Not Available Not Available Not Available amoxicillin 875 mg-potassiu m clavulanate 125 mg tablet 01/10 completed Not Available Not Available Not Available Vitals Date Recorded Body height Body mass index (BMI) Body weight Respiratory rate Oxygen saturation Oxygen saturation in Arterial blood by Pulse oximetry Heart rate Systolic blood pressure Diastolic blood pressure Provider Name and Address Organization Details Last Updated DateTime 4 157.48 cm 29.4 kg/m2 57475.3 7 g 20 /min 97 % 97 % 72 /min 132 mm[Hg] 88 mm[Hg] Deborah Wild MA [facility] 4 09:13:24 Date Recorded Systolic blood pressure Diastolic blood pressure Provider Name and Address Organization Details Last Updated DateTime 01/13/2024 140 mm[Hg] 80 mm[Hg] VALERIANO Vallejo Attn: Accounting,[address] [place], [address], [facility] 01/13/2024 09:37:15 Date Recorded Body height Body mass index (BMI) Body weight Respiratory rate Oxygen saturation Oxygen saturation in Arterial blood by Pulse oximetry Heart rate Systolic blood pressure Diastolic blood pressure Provider Name and Address Organization Details Last Updated DateTime 4 157.48 cm 26.5 kg/m2 21701.8 9 g 20 /min 98 % 98 % 61 /min 140 mm[Hg] 78 mm[Hg] Deborah Wild MA [facility] 4 11:40:35 Date Recorded Body height Body mass index (BMI) Body weight Respiratory rate Heart rate Oxygen saturation Oxygen saturation in Arterial blood by Pulse oximetry Systolic blood pressure Diastolic blood pressure Provider Name and Address Organization Details Last Updated DateTime 4 157.48 cm 26.2 kg/m2 19408.1 4 g 16 /min 67 /min 98 % 98 % 140 mm[Hg] 88 mm[Hg] Sobeida Dobbs [facility] 4 10:30:31 Date Recorded Systolic blood pressure Diastolic blood pressure Systolic blood pressure Diastolic blood pressure Provider Name and Address Organization Details Last Updated DateTime 05/23/2024 130 mm[Hg] 82 mm[Hg] 142 mm[Hg] 82 mm[Hg] VALERIANO Vallejo Attn: Accounting ,[address] [place], [address] , [facility] 4 10:57:21 Date Recorded Body height Body mass index (BMI) Body weight Respiratory rate Oxygen saturation Oxygen saturation in Arterial blood by Pulse oximetry Heart rate Systolic blood pressure Diastolic blood pressure Provider Name and Address Organization Details Last Updated DateTime 4 157.48 cm 26.6 kg/m2 62382.4 1 g 18 /min 99 % 99 % 64 /min 130 mm[Hg] 82 mm[Hg] Deborah Wild MA [facility] 4 12:01:26 Date Recorded Body height Body mass index (BMI) Body weight Oxygen saturation Oxygen saturation in Arterial blood by Pulse oximetry Heart rate Systolic blood pressure Diastolic blood pressure Provider Name and Address Organization Details Last Updated DateTime 5 157.48 cm 26.7 kg/m2 04774.4 9 g 99 % 99 % 58 /min 126 mm[Hg] 82 mm[Hg] Deborah Wild MA [facility] 5 14:49:05 Date Recorded Systolic blood pressure Diastolic blood pressure Provider Name and Address Organization Details Last Updated DateTime 01/25/2025 130 mm[Hg] 80 mm[Hg] VALERIANO Vallejo Attn: Accounting,[address] [place], [address], [facility] 01/25/2025 15:07:18 Social History Question Answer Notes LastModified by Organizat ion Details LastModified Time Tobacco Smoking Status Never Smoker Deborah Wild MA null, [facility] 01/13/2024 09:10:21 Do You Have An Advance Directive? No Information n ot available 01/13/2024 What Is Your Level Of Alcohol Consumption? None Information not available 01/13/2024 Are You Blind Or Do You Have Difficulty Seeing? No Information n ot available 01/13/2024 What Is Your Level Of Caffeine Consumption? Moderate Information not available 01/13/2024 In The 14 Days Before Symptom Onset, Have You Had Close Contact With A Laboratory-confirm ed COVID-19 While That Case Was Ill? No Information n ot available 01/13/2024 In The 14 Days Before Symptom Onset, Have You Had Close Contact With A Person Who Is Under Investigation For COVID-19 While That Person Was Ill? No Information not available 01/13/2024 Have You Been To An Area Known To Be High Risk For COVID-19? No Information not available 01/13/2024 Are You Currently Employed? No Information not available 01/25/2025 Are You Deaf Or Do You Have Serious Difficulty Hearing? No Information not available 01/13/2024 What Type Of Diet Are You Following? REGULAR Information n ot available 01/13/2024 Are There Any Guns Present In Your Home? No Information not available 01/13/2024 What Was The Date Of Your Most Recent Tobacco Screening? 01/25/2025 Information not available 01/25/2025 Do You Use Your Seat Belt Or Car Seat Routinely? Yes Information not available 01/13/2024 Do You Have Smoke And Carbon Monoxide Detectors In Your Home? Yes Information not available 01/13/2024 Do You Use Any Illicit Or Recreational Drugs? No Information not available 01/13/2024 Do You Use Sunscreen Routinely? No Information not available 01/13/2024 Has Tobacco Cessation Counseling Been Provided? Yes Information not available 03/16/2024 On What Date Was Tobacco Cessation Counseling Provided? 01/25/2025 Information not available 01/25/2025 Do You Or Have You Ever Used Any Other Forms Of Tobacco Or Nicotine? No Information not available 01/13/2024 Sex: Female Functional Status Question Answer Note LastModified by Organization D etails LastModified Time Are you able to care for yourself? Yes Information n ot available 01/13/2024 What is your exercise level? None Information not available 01/13/2024 Mental Status None recorded. Family History Relationship Description Onset Age of this Age Resolved Age Notes LastModified by Organization Details LastModified Time Mother Hypertensive disorder [email or web address] Not available 2023 10:21:50 Mother Hypercholest erolemia [email or web address] Not available 2023 10:21:57 Notes:no change Medical History Condition Response Coronary Artery Disease N Other N High Blood Pressure N Atrial Fibrillation N Kidney or Bladder Problems N Thyroid Problems N GI Problems N Depression N COPD N Blood Clots N Skin Problems N Anemia N Heart Attack (MD) N Anxiety Disorder N Diabetes N Muscle, Joint, or Bone Problems N Seizures/Epilepsy N Acid Reflux (GERD) N Cancer N Stroke N Asthma Y Allergies N High Cholesterol N Hepatitis N Liver Disease N Headaches N Heart Failure N Osteoporosis N Gynecological History Statement/Question Response Menses Monthly N Current Control Method Menopause Obstetrics History GPAL:G 3 P 3 0 0 3 Type Value Multiple Births 0 Full Term 3 Induced 0 Spontaneous 0 Premature 0 Living 3 Total 3 Immunizations Vaccine Type Date Status Note Provider Nam e and Address Organization Details Recorded Time Influenza, high-dose, trivalent, PF 3 completed RASHAD Miller [facility] 01/25/2025 14:47:01 Influenza, split virus, trivalent, preservative 3 completed RASHAD Miller [place] [facility] 01/25/2025 14:47:01 Past Encounters Encounter ID Performer Location Encounter Start Date Encounter Closed Date Diagnosis/Indication Diagnosis SNOMED-CT Code Diagnosis ICD10 Code Diagnosis Note [id number] Jackson Elliott MD [facility] [place] [address] [place] [address] 01/13/2024 08:57:53 01/13/2024 09:52:38 Hypothyroidism 84398535 E03.9 patient is stable on levothyrox ine 88mcg daily. due for updated thyroid functio labs. Long-term drug therapy 996105988 Z79.899 routine cbc, hepatic and bmp panels. Hyperlipidemia 89646115 E78.5 hx of elevated lipids. pt declines any medication therapy. aware of recommenda tions for CAD/CVD risk reduction. Elevated blood-pressure reading without diagnosis of hypertension 742797313 R03.0 140/80: borderline BP on evaluation today. Patient will f/u in march for repeat BP evaluation . she will resume her usual exercise routine that has been lacking as of late. Body mass index 25-29 - overweight 029835423 Z68.29 discussed healthy diet, exercise, controllin g carbohydra jess and added sugars in the diet. Resume prior exercise routine to help with bp weight and blood pressure management . [id number] Jackson Ellitot MD [facility] [employer] [address] [place] [address] 03/17/2024 11:15:38 04/11/2024 15:36:33 Hypothyroidism 07146158 E03.9 pt does need updated labs. check TFT panel. pt is taking levothyrox ine 75mcg daily. Hyperlipidemia 57766706 E78.5 hx of elevated lipids. pt declines any medication therapy. aware of recommenda tions for CAD/CVD risk reduction. Long-term drug therapy 404424003 Z79.899 routine hepatic and bmp panels due in jun. Elevated blood-pressure reading without diagnosis of hypertension 446720076 R03.0 140/78: borderline BP on evaluation today. Patient will f/u in march for repeat BP evaluation . she will resume her usual exercise routine that has been lacking as of late. Body mass index 25-29 - overweight 676300710 Z68.29 discussed healthy diet, exercise, controllin g carbohydra jess and added sugars in the diet. Resume prior exercise routine to help with bp weight and blood pressure management . [id number] Jackson Elliott MD [facility] [employer] [address] [place] [address] 05/23/2024 10:15:01 05/23/2024 11:22:08 Body mass index 25-29 - overweight 752773655 Z68.29 Dyspnea 129925250 R06.00 Dyspnea reported and reason for recent hospital ER visit. We will refer her for an exercise stress echo to evaluate cardiac status Folliculitis 89537353 L7 3.9 Start doxycyclin e 100 mg twice daily with meal times 10 days [id number] Jackson Elliott MD [facility] [employer] [address] [place] [address] 07/14/2024 11:15:34 07/14/2024 12:32:59 Hypothyroidism 07750791 E03.9 There is room to increase the T for a bit and decreased TSH. We will boost her levothyrox ine to 88 mcg daily and repeat labs in October. Hyperlipidemia 64775547 E78.5 hx of elevated lipids. pt declines any medication therapy. aware of recommenda tions for CAD/CVD risk reduction. Fasting lipid panel due in October Long-term drug therapy 894546073 Z79.899 Metabolic panel and CBC due in October Body mass index 25-29 - overweight 737427766 Z68.29 BMI is 26.6. Patient is eating healthy and exercising routinely there are no acute concerns about her BMI Overweight 633567395 E66 .3 Continue excellent exercise and dietary management Elevated blood-pressure reading without diagnosis of hypertension 351743149 R03.0 Patient's blood pressure is improved and stable today. [id number] Jackson Elliott MD [facility] [employer] [address] [place] [address] 01/25/2025 14:32:19 01/25/2025 15:55:13 Body mass index 25-29 - overweight 952632437 Z68.29 BMI is 26.7. Patient is eating healthy and exercising routinely there are no acute concerns about her BMI Hypothyroidism 21699025 E03.9 There is room to increase the T for a bit and decreased TSH. We will boost her levothyrox ine to 88 mcg daily and repeat labs in October. Overweight [id number] E66 .3 Continue excellent exercise and dietary management Hyperlipidemia [id number] E78.5 hx of elevated lipids. pt declines any medication therapy. aware of recommenda tions for CAD/CVD risk reduction. Fasting lipid panel due in October Long-term drug therapy [id number] Z79.899 Serum crea tinine above reference range [id number] R79.89 Mammogram declined [id number] Z53.20 Eruption [id number] R21 Health Concerns Section Related Observation LastModified by Organization Sonal iglesais LastModified Time None Recorded Concern Status LastModified by Organization Details LastModified Time None Recorded Advance Directives Directive N: Payers Encounter Date Sequence Insurance Name Policy Number Policy Whitney Covered Member ID Whitney Member ID Guarantor Name 01/13/2024 1 [place] Baylee K Carlos [id number] Baylee [place] 01/13/2024 2 [employer] (MEDICARE SUPPLEMENT) Baylee K Carlos [id number] Baylee [place] 03/17/2024 2 [employer] (MEDICARE SUPPLEMENT) Baylee K Carlos [id number] Baylee [place] 03/17/2024 MEDICARE [place]: [facility] Baylee Carlos [id number] Baylee Carlos 05/23/2024 1 [place] Baylee K [place] [id number] Baylee [place] 05/23/2024 2 [facility]MEDIC[facility] SUPPLE[facility]) Baylee Carlos [id number] Baylee [place] 07/14/2024 1 [place] Baylee K [place] [id number] Baylee Carlos 07/14/2024 2 [facility] (MEDIC[place]PPLE[place]) Baylee [place] [id number] Baylee Carlos Notes Date Note Type Note Provider Name and Address Organization Details Recorded Time 4 text/html ThyroidReported bypatient.Quality:improving Severity:mild Duration:constant Onset/Timing:better Context:history of hypothyroidism Modifying Factors:medication Exercisegets exercise; walks 5 times per week; other types of exercise: Associated Symptoms:weight gain ( lbs);increased blood pressure VALERIANO Vallejo Attn: Accounting,[address] [facility], [place], [address], [facility] 01/24/2024 17:54:36 4 text/html HyperlipidemiaReported bypatient.Notes:pt has hx of LDL elevation but does not want to take medication to lower.ThyroidReported bypatient.Quality:improving Severity:mild Duration:constant Onset/Timing:better Context:history of hypothyroidism Modifying Factors:medication Exercisegets exercise; walks 5 times per week; other types of exercise: Associated Symptoms:weight loss ( lbs) Pt here to f/u on blood pressure that was borderline elevation at appt in VALERIANO Vallejo Attn: Accounting,[address] [facility], [place], [address], [facility] 04/10/2024 15:55:04 4 text/html Generic HPI TemplateReported bypatient.Notes:Pt is here for an e/r f/u from 04/30/24 for back tightness and SOB. EKG and CTA were normal. Record is closed in her chart. She said she had poison demond before she went to the e/r and they gave her prednisone. So she was on that for 6 days and 3rd day being off of it is when she went to the e/r. Two weeks later she had another episode of the back tightness while in the shower and then getting out of the shower. Her BP then was 81/51. When she's not having an episode her BP readings at home have been good. No cardiology referral was given. Today she feels ok. She doesn't remember having SOB w/the episode. Says when she has it her arms feel very weak and like a severe cramp in her back. The second episode she also go very cold with the episode. VALERIANO Vallejo Attn: Accounting,[address] [facility], [place], [address], [facility] 06/11/2024 17:36:52 4 text/html HyperlipidemiaReported bypatient.Notes:pt has hx of LDL elevation but does not want to take medication to lower.ThyroidReported bypatient.Quality:improving Severity:mild Duration:constant Onset/Timing:better Context:history of hypothyroidism Modifying Factors:medication Exercisegets exercise; walks 5 times per week; other types of exercise: Associated Symptoms:weight loss ( lbs)Notes:Patient is stable on thyroid supplement Pt here to f/u on blood pressure that was elevated at last appointment and seems to run elevated in the clinical environment often. VALERIANO Vallejo Attn: Accounting,[address] [facility], [place], [address], [facility] 08/07/2024 15:42:43 OBGyn Episode No OBEpisode recorded.
== END 2025-02-09 14:17 | disposition home or self-care (01) ==
PROVIDERS: PCP Physician Assistant; Visit Provider Physician Assistant
DX: Q62.39 Other obstructive defects of renal pelvis and ureter (principal); R79.89 Other specified abnormal findings of blood chemistry
CPT/HCPCS: 76775

== ENCOUNTER 2025-02-20 14:47 | Outpatient (CLI) | payer MEDICARE, SELFPAY ==
--- NOTE | ~2025-02-20 | CT_ITS ---
CT of the Abdomen and Pelvis: Indication: Abnormal findings on diagnostic imaging Technique: 2.5 mm axial scans were obtained through the abdomen and pelvis prior to and following in travenous administration of 130 cc of Omnipaque 350. Dose reduction technique was used on this scan b y utilizing automated exposure control and iterative reconstruction technique. The dose-length produc t (DLP) was 1119.56 mGy-cm. COMPARISON: 04/30/2024 Findings: Scans through the lung bases are unremarkable. The liver, spleen, pancreas, gallbladder, adrenals and kidneys are within normal limits. There are atherosclerotic calcifications of the aorta. No lymphadenopathy. No bowel obstruction or bowel wall thickening. There is no evidence to suggest acute appendicitis. Images through the pelvis were performed. Urinary bladder unremarkable. No pelvic mass seen. No ascit es. Impression: No significant abnormalities seen. Reviewed, dictated and finalized at [facility]. Impression: No significant abnormalities seen.
--- OUTSIDE RECORDS SUMMARY | 2025-02-20 14:55 | XMS_ITS | Clinical Summary ---
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
--- OUTSIDE RECORDS SUMMARY | 2025-02-20 14:56 | XMS_ITS | Data Portability ---
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 Plan of Treatment Reminders Order Date Submit Date Provider Last Modified By Organization Details Last Modified Time Details Appointments ANY 15 2024 10:00A M VALERIANO Vallejo Not available Not available Not available Lab hepatic function panel, serum 2024 025 [email or web address] [facility], [address], [place], [address], 01/25/2025 15:11:35 BMP, serum or plasma 2024 025 [email or web address] [facility], [address], [place], [address], 01/25/2025 15:11:35 CBC w/ auto diff 2024 025 [email or web address] [facility], [address], [place], [address], 01/25/2025 15:11:36 TSH + free T4, serum 2024 025 [email or web address] [facility], [address], [place], [address], 01/25/2025 15:11:35 lipid panel, serum 2024 025 [email or web address] [facility], [address], [place], [address], 01/25/2025 15:11:35 hepatic function panel, serum 2023 025 [facility], [address], [place], [address], 11/09/2024 07:08:39 BMP, serum or plasma 2023 025 [facility], [address], [place], [address], 11/09/2024 07:08:40 CBC w/ auto diff 2023 025 [facility], [address], [place], [address], 11/09/2024 07:08:41 lipid panel, serum 2023 025 [facility], [address], [place], [address], 11/09/2024 07:08:38 TSH + free T4, serum 2023 025 [facility], [address], [place], [address], 11/09/2024 07:08:37 T3, free, serum or plasma 2023 025 [facility], [address], [place], [address], 11/09/2024 07:08:42 hepatic function panel, serum 2023 024 [facility], [address], [place], [address], 07/13/2024 07:15:21 BMP, serum or plasma 2023 024 [facility], [address], [place], [address], 07/13/2024 07:15:21 lipid panel, serum 2023 024 [facility], [address], [place], [address], 07/13/2024 07:15:20 TSH + free T4, serum 2023 024 [facility], [address], [place], [address], 07/13/2024 07:15:20 T3, free, serum or plasma 2023 024 [facility], [address], [place], [address], 07/13/2024 07:15:22 CBC w/ auto diff 2023 024 [facility], [address], [place], [address], 01/29/2024 12:37:58 hepatic function panel, serum 2023 024 [facility], [address], [place], [address], 01/29/2024 12:37:57 BMP, serum or plasma 2023 024 [facility], [address], [place], [address], 01/29/2024 12:37:58 lipid panel, serum 2023 024 [facility], [address], [place], [address], 01/29/2024 12:37:57 TSH + free T4, serum 2023 024 [facility], [address], [place], [address], 01/29/2024 12:37:56 Referral dermatolo gist referral 2024 025 [email or web address] [facility], [address] , [place], [address], 02/02/2025 10:44:44 Procedures None recorded. Surgeries None recorded. Imaging US, kidney 2024 025 [facility] (Imaging), [address], [place], [address], 02/09/2025 18:17:18 exercise stress echocardi ogram 2023 024 [facility] (Cardiology & Emg), [address], [place], [address], 07/08/2024 13:06:56 Medication Orders triamcino lone acetonide 0.1 % topical cream 2024 025 [id number], [address] [place], [address], 01/25/2025 15:11:43 levothyro xine 88 mcg tablet 2023 025 [id number], [address] [place], [address], 11/10/2024 17:40:04 doxycycli ne hyclate 100 mg capsule 2023 024 [id number], [address] [place], [address], 07/14/2024 11:59:17 Patient TargetsNo targets recorded. Patient Instructions Encounter Date Encounter Id Patient Instructions Last Modified By Organization Details Last Modified Time 07/14/2024 [id number] A healthy lifestyle: care instructions Not available 08/07/2024 15:42:10 01/25/2025 [id number] A healthy lifestyle: care instructions Not available 01/25/2025 15:11:35 Reason for Referral Regional Transfer Liaison Referral for E ruption Referring Physician: Reema Felipe, Internal Medicine, Encounter Date: 01/25/2025 Results Created Date Observation Date Name Description Value Unit Range Abnormal Flag Note LastModifiedBy Organization Detail LastModifiedTime 01/28/20 24 01/29/2024 TSH+F REE T4 TSH 0.041 uIU/m L 0.450- 4.500 below low normal Not Available [facility] ([facility]) [address] [place], [address], 01/29/2024 12:37:56 01/28/20 24 01/29/2024 TSH+F REE T4 T4,free(dire ct) 1.86 NG/dL 0.82-1 .77 above high normal Not Available [facility] ([facility]) [address] [place], [address], 01/29/2024 12:37:56 01/28/20 24 01/29/2024 LIPID PANEL cholesterol, total 216 mg/dL 100-19 9 above high normal Not Available [facility] ([facility]) [address] [place], [address], 01/29/2024 12:37:57 01/28/20 24 01/29/2024 LIPID PANEL triglyceride s 80 mg/dL 0-149 Not Available [facility] ([facility]) [address] [place], [address], 01/29/2024 12:37:57 01/28/20 24 01/29/2024 LIPID PANEL HDL cholesterol 73 mg/dL >39 Not Available [facility]) [address] [place], [address], 01/29/2024 12:37:57 01/28/20 24 01/29/2024 LIPID PANEL VLDL cholesterol mercedes 14 mg/dL 5-40 Not Available [facility] ([facility]) [address], [place], [address], 01/29/2024 12:37:57 01/28/20 24 01/29/2024 LIPID PANEL LDL chol calc ([facility]) 129 mg/dL 0-99 above high normal Not Available [facility] ([facility]) [address], [place], [address], 01/29/2024 12:37:57 01/28/20 24 01/29/2024 HEPAT IC FUNCT ION PANEL (7) protein, total 7.2 g/dL 6.0-8. 5 Not Available [facility] ([facility]) [address] [place], [address], 01/29/2024 12:37:57 01/28/20 24 01/29/2024 HEPAT IC FUNCT ION PANEL (7) albumin 4.6 g/dL 3.9-4. 9 Not Available [facility] ([facility]) [address], [place], [address], 01/29/2024 12:37:57 01/28/20 24 01/29/2024 HEPAT IC FUNCT ION PANEL (7) bilirubin, total 0.3 mg/dL 0.0-1. 2 Not Available [facility] ([facility]) [address] [place], [address], 01/29/2024 12:37:57 01/28/20 24 01/29/2024 HEPAT IC FUNCT ION PANEL (7) bilirubin, direct <0.10 mg/dL 0.00-0 .40 Not Available [facility] ([facility]) [address] [place], [address], 01/29/2024 12:37:57 01/28/20 24 01/29/2024 HEPAT IC FUNCT ION PANEL (7) alkaline phosphatase 106 IU/L 44-121 Not Available [facility] ([facility]) [address] [place], [address], 01/29/2024 12:37:57 01/28/20 24 01/29/2024 HEPAT IC FUNCT ION PANEL (7) AST (SGOT) 22 IU/L 0-40 Not Available [facility] ([facility]) [address], [place], [address], 01/29/2024 12:37:57 01/28/20 24 01/29/2024 HEPAT IC FUNCT ION PANEL (7) ALT (SGPT) 17 IU/L 0-32 Not Available [facility] ([facility]) [address] [place], [address], 01/29/2024 12:37:57 01/28/20 24 01/29/2024 BMP7+ EGFR glucose 93 mg/dL 70-99 Not Available [facility] ([facility]) [address], [place], [address], 01/29/2024 12:37:58 01/28/20 24 01/29/2024 BMP7+ EGFR BUN 12 mg/dL 8-27 Not Available [facility] ([facility]) [address], [place], [address], 01/29/2024 12:37:58 01/28/20 24 01/29/2024 BMP7+ EGFR creatinine 0.87 mg/dL 0.57-1 .00 Not Available [facility] ([facility]) [address], [place], [address], 01/29/2024 12:37:58 01/28/20 24 01/29/2024 BMP7+ EGFR eGFR 73 mL/mi n/1.7 3 >59 Not Available [facility] ([facility]) [address], [place], [address], 01/29/2024 12:37:58 01/28/20 24 01/29/2024 BMP7+ EGFR sodium 141 mmol/ L 134-14 4 Not Available [facility] ([facility]) [address], [place], [address], 01/29/2024 12:37:58 01/28/20 24 01/29/2024 BMP7+ EGFR potassium 4.8 mmol/ L 3.5-5. 2 Not Available [facility] ([facility]) [address], [place], [address], 01/29/2024 12:37:58 01/28/20 24 01/29/2024 BMP7+ EGFR chloride 102 mmol/ L 96-106 Not Available [facility] ([facility]) [address], [place], [address], 01/29/2024 12:37:58 01/28/20 24 01/29/2024 BMP7+ EGFR carbon dioxide, total 24 mmol/ L 20-29 Not Available [facility] ([facility]) [address], [place], [address], 01/29/2024 12:37:58 01/28/20 24 01/29/2024 CBC WITH DIFFE RENTI AL/PL ATELE T WBC 7.2 x10e3 /uL 3.4-10 .8 Not Available [facility] ([facility]) [address], [place], [address], 01/29/2024 12:37:58 01/28/20 24 01/29/2024 CBC WITH DIFFE RENTI AL/PL ATELE T RBC 4.39 x10e6 /uL 3.77-5 .28 Not Available [facility] ([facility]) [address] [place], [address], 01/29/2024 12:37:58 01/28/20 24 01/29/2024 CBC WITH DIFFE RENTI AL/PL ATELE T hemoglobin 13.5 g/dL 11.1-1 5.9 Not Available [facility] ([facility]) [address] [place], [address], 01/29/2024 12:37:58 01/28/20 24 01/29/2024 CBC WITH DIFFE RENTI AL/PL ATELE T hematocrit 40.5 % 34.0-4 6.6 Not Available [facility] ([facility]) [address], [place], [address], 01/29/2024 12:37:58 01/28/20 24 01/29/2024 CBC WITH DIFFE RENTI AL/PL ATELE T MCV 92 fL 79-97 Not Available [facility] ([facility]) [address], [place], [address], 01/29/2024 12:37:58 01/28/20 24 01/29/2024 CBC WITH DIFFE RENTI AL/PL ATELE T MCH 30.8 pg 26.6-3 3.0 Not Available [facility] ([facility]) [address], [place], [address], 01/29/2024 12:37:58 01/28/20 24 01/29/2024 CBC WITH DIFFE RENTI AL/PL ATELE T MCHC 33.3 g/dL 31.5-3 5.7 Not Available [facility] ([facility]) [address], [place], [address], 01/29/2024 12:37:58 01/28/20 24 01/29/2024 CBC WITH DIFFE RENTI AL/PL ATELE T RDW 12.8 % 11.7-1 5.4 Not Available [facility] ([facility]) [address] [place], [address], 01/29/2024 12:37:58 01/28/20 24 01/29/2024 CBC WITH DIFFE RENTI AL/PL ATELE T platelets 333 x10e3 /uL 150-45 0 Not Available [facility] ([facility]) [address], [place], [address], 01/29/2024 12:37:58 01/28/20 24 01/29/2024 CBC WITH DIFFE RENTI AL/PL ATELE T neutrophils 48 % notest ab. Not Available [facility] ([facility]) [address], [place], [address], 01/29/2024 12:37:58 01/28/20 24 01/29/2024 CBC WITH DIFFE RENTI AL/PL ATELE T lymphs 37 % notest ab. Not Available [facility] ([facility]) [address], [place], [address], 01/29/2024 12:37:58 01/28/20 24 01/29/2024 CBC WITH DIFFE RENTI AL/PL ATELE T monocytes 9 % notest ab. Not Available [facility] ([facility]) [address], [place], [address], 01/29/2024 12:37:58 01/28/20 24 01/29/2024 CBC WITH DIFFE RENTI AL/PL ATELE T eos 5 % notest ab. Not Available [facility] ([facility]) [address], [place], [address], 01/29/2024 12:37:58 01/28/20 24 01/29/2024 CBC WITH DIFFE RENTI AL/PL ATELE T basos 1 % notest ab. Not Available [facility] ([facility]) [address], [place], [address], 01/29/2024 12:37:58 01/28/20 24 01/29/2024 CBC WITH DIFFE RENTI AL/PL ATELE T neutrophils (absolute) 3.5 x10e3 /uL 1.4-7. 0 Not Available [facility] ([facility]) [address], [place], [address], 01/29/2024 12:37:58 01/28/20 24 01/29/2024 CBC WITH DIFFE RENTI AL/PL ATELE T lymphs (absolute) 2.6 x10e3 /uL 0.7-3. 1 Not Available [facility] ([facility]) [address], [place], [address], 01/29/2024 12:37:58 01/28/20 24 01/29/2024 CBC WITH DIFFE RENTI AL/PL ATELE T monocytes(ab solute) 0.6 x10e3 /uL 0.1-0. 9 Not Available [facility] ([facility]) [address], [place], [address], 01/29/2024 12:37:58 01/28/20 24 01/29/2024 CBC WITH DIFFE RENTI AL/PL ATELE T eos (absolute) 0.3 x10e3 /uL 0.0-0. 4 Not Available [facility] ([facility]) [address], [place], [address], 01/29/2024 12:37:58 01/28/20 24 01/29/2024 CBC WITH DIFFE RENTI AL/PL ATELE T baso (absolute) 0.1 x10e3 /uL 0.0-0. 2 Not Available [facility] ([facility]) [address], [place], [address], 01/29/2024 12:37:58 01/28/20 24 01/29/2024 CBC WITH DIFFE RENTI AL/PL ATELE T immature granulocytes 0 % notest ab. Not Available [facility] ([facility]) [address], [place], [address], 01/29/2024 12:37:58 01/28/20 24 01/29/2024 CBC WITH DIFFE RENTI AL/PL ATELE T immature grans (abs) 0.0 x10e3 /uL 0.0-0. 1 Not Available [facility] ([facility]) [address] [place], [address], 01/29/2024 12:37:58 07/12/2007/13/2024 TSH+F REE T4 TSH 2.300 uIU/m L 0.450- 4.500 Not Available [facility] ([facility]) [address] [place], [address], 07/13/2024 07:15:19 07/12/2007/13/2024 TSH+F REE T4 T4,free(dire ct) 1.17 NG/dL 0.82-1 .77 Not Available [facility] ([facility]) [address] [place], [address], 07/13/2024 07:15:19 07/12/2007/13/2024 LIPID PANEL cholesterol, total 248 mg/dL 100-19 9 above high normal Not Available [facility] ([facility]) [address] [place], [address], 07/13/2024 07:15:20 07/12/20 24 07/13/2024 LIPID PANEL triglyceride s 91 mg/dL 0-149 Not Available [facility] ([facility]) [address] [place], [address], 07/13/2024 07:15:20 07/12/2007/13/2024 LIPID PANEL HDL cholesterol 70 mg/dL >39 Not Available [facility] ([facility]) [address] [place], [address], 07/13/2024 07:15:20 07/12/2007/13/2024 LIPID PANEL VLDL cholesterol mercedes 16 mg/dL 5-40 Not Available [facility] ([facility]) [address] [place], [address], 07/13/2024 07:15:20 07/12/20 24 07/13/2024 LIPID PANEL LDL chol calc ([facility]) 162 mg/dL 0-99 above high normal Not Available [facility] ([facility]) [address] [place], [address], 07/13/2024 07:15:20 07/12/2007/13/2024 HEPAT IC FUNCT ION PANEL (7) protein, total 6.4 g/dL 6.0-8. 5 Not Available [facility] ([facility]) [address] [place], [address], 07/13/2024 07:15:21 07/12/2007/13/2024 HEPAT IC FUNCT ION PANEL (7) albumin 4.2 g/dL 3.9-4. 9 Not Available [facility] ([facility]) [address] [place], [address], 07/13/2024 07:15:21 07/12/20 24 07/13/2024 HEPAT IC FUNCT ION PANEL (7) bilirubin, total 0.3 mg/dL 0.0-1. 2 Not Available [facility] ([facility]) [address] [place], [address], 07/13/2024 07:15:21 07/12/2007/13/2024 HEPAT IC FUNCT ION PANEL (7) bilirubin, direct <0.10 mg/dL 0.00-0 .40 Not Available [facility] ([facility]) [address] [place], [address], 07/13/2024 07:15:21 07/12/2007/13/2024 HEPAT IC FUNCT ION PANEL (7) alkaline phosphatase 109 IU/L 44-121 Not Available [facility] ([facility]) [address] [place], [address], 07/13/2024 07:15:21 07/12/20 24 07/13/2024 HEPAT IC FUNCT ION PANEL (7) AST (SGOT) 18 IU/L 0-40 Not Available [facility] ([facility]) [address], [place], [address], 07/13/2024 07:15:21 07/12/2007/13/2024 HEPAT IC FUNCT ION PANEL (7) ALT (SGPT) 12 IU/L 0-32 Not Available [facility] ([facility]) [address], [place], [address], 07/13/2024 07:15:21 07/12/2007/13/2024 BMP7+ EGFR glucose 88 mg/dL 70-99 Not Available [facility] ([facility]) [address] [place], [address], 07/13/2024 07:15:21 07/12/2007/13/2024 BMP7+ EGFR BUN 18 mg/dL 8-27 Not Available [facility] ([facility]) [address] [place], [address], 07/13/2024 07:15:21 07/12/2007/13/2024 BMP7+ EGFR creatinine 0.89 mg/dL 0.57-1 .00 Not Available [facility] ([facility]) [address], [place], [address], 07/13/2024 07:15:21 07/12/20 24 07/13/2024 BMP7+ EGFR eGFR 70 mL/mi n/1.7 3 >59 Not Available [facility] ([facility]) [address] [place], [address], 07/13/2024 07:15:21 07/12/2007/13/2024 BMP7+ EGFR sodium 141 mmol/ L 134-14 4 Not Available [facility] ([facility]) [address] [place], [address], 07/13/2024 07:15:21 07/12/20 24 07/13/2024 BMP7+ EGFR potassium 4.8 mmol/ L 3.5-5. 2 Not Available [facility] ([facility]) [address] [place], [address], 07/13/2024 07:15:21 07/12/20 24 07/13/2024 BMP7+ EGFR chloride 106 mmol/ L 96-106 Not Available [facility] ([facility]) [address] [place], [address], 07/13/2024 07:15:21 07/12/20 24 07/13/2024 BMP7+ EGFR carbon dioxide, total 23 mmol/ L 20-29 Not Available [facility] ([facility]) [address] [place], [address], 07/13/2024 07:15:21 07/12/20 24 07/13/2024 TRIIO DOTHY KAT E (T3), FREE triiodothyro nine (T3), free 2.1 pg/mL 2.0-4. 4 Not Available [facility] ([facility]) [address] [place], [address], 07/13/2024 07:15:22 11/08/1911/09/2024 TSH+F REE T4 TSH 0.395 uIU/m L 0.450- 4.500 below low normal Not Available [facility] ([facility]) [address] [place], [address], 11/09/2024 07:08:37 11/08/1911/09/2024 TSH+F REE T4 T4,free(dire ct) 1.67 NG/dL 0.82-1 .77 Not Available [facility] ([facility]) [address] [place], [address], 11/09/2024 07:08:37 11/08/1911/09/2024 LIPID PANEL cholesterol, total 225 mg/dL 100-19 9 above high normal Not Available [facility] ([facility]) [address] [place], [address], 11/09/2024 07:08:38 11/08/19 25 11/09/2024 LIPID PANEL triglyceride s 83 mg/dL 0-149 Not Available [facility] ([facility]) [address] [place], [address], 11/09/2024 07:08:38 11/08/19 25 11/09/2024 LIPID PANEL HDL cholesterol 71 mg/dL >39 Not Available [facility] ([facility]) [address] [place], [address], 11/09/2024 07:08:38 11/08/19 25 11/09/2024 LIPID PANEL VLDL cholesterol mercedes 14 mg/dL 5-40 Not Available [facility] ([facility]) [address] [place], [address], 11/09/2024 07:08:38 11/08/19 25 11/09/2024 LIPID PANEL LDL chol calc ([facility]) 140 mg/dL 0-99 above high normal Not Available [facility] ([facility]) [address] [place], [address], 11/09/2024 07:08:38 11/08/19 25 11/09/2024 HEPAT IC FUNCT ION PANEL (7) protein, total 4.2 g/dL 6.0-8. 5 alert low Not Available [facility] ([facility]) [address] [place], [address], 11/09/2024 07:08:39 11/08/19 25 11/09/2024 HEPAT IC FUNCT ION PANEL (7) albumin 4.0 g/dL 3.9-4. 9 Not Available [facility] ([facility]) [address] [place], [address], 11/09/2024 07:08:39 11/08/19 25 11/09/2024 HEPAT IC FUNCT ION PANEL (7) bilirubin, total 0.2 mg/dL 0.0-1. 2 Not Available [facility] ([facility]) [address] [place], [address], 11/09/2024 07:08:39 11/08/19 25 11/09/2024 HEPAT IC FUNCT ION PANEL (7) bilirubin, direct 0.09 mg/dL 0.00-0 .40 Not Available [facility] ([facility]) [address] [place], [address], 11/09/2024 07:08:39 11/08/19 25 11/09/2024 HEPAT IC FUNCT ION PANEL (7) alkaline phosphatase 113 IU/L 44-121 Not Available [facility] ([facility]) [address] [place], [address], 11/09/2024 07:08:39 11/08/19 25 11/09/2024 HEPAT IC FUNCT ION PANEL (7) AST (SGOT) 17 IU/L 0-40 Not Available [facility] ([facility]) [address] [place], [address], 11/09/2024 07:08:39 11/08/19 25 11/09/2024 HEPAT IC FUNCT ION PANEL (7) ALT (SGPT) 12 IU/L 0-32 Not Available [facility] ([facility]) [address] [place], [address], 11/09/2024 07:08:39 11/08/1911/09/2024 BMP7+ EGFR glucose 88 mg/dL 70-99 Not Available [facility] ([facility]) [address] [place], [address], 11/09/2024 07:08:40 11/08/1911/09/2024 BMP7+ EGFR BUN 15 mg/dL 8-27 Not Available [facility] ([facility]) [address] [place], [address], 11/09/2024 07:08:40 11/08/19 25 11/09/2024 BMP7+ EGFR creatinine 0.97 mg/dL 0.57-1 .00 Not Available [facility] ([facility]) [address], [place], [address], 11/09/2024 07:08:40 11/08/19 25 11/09/2024 BMP7+ EGFR eGFR 63 mL/mi n/1.7 3 >59 Not Available [facility] ([facility]) [address], [place], [address], 11/09/2024 07:08:40 11/08/19 25 11/09/2024 BMP7+ EGFR sodium 141 mmol/ L 134-14 4 Not Available [facility] ([facility]) [address] [facility], [place], [address], 11/09/2024 07:08:40 11/08/19 25 11/09/2024 BMP7+ EGFR potassium 4.8 mmol/ L 3.5-5. 2 Not Available [facility] ([facility]) [address], [place], [address], 11/09/2024 07:08:40 11/08/19 25 11/09/2024 BMP7+ EGFR chloride 105 mmol/ L 96-106 Not Available [facility] ([facility]) [address] [facility], [place], [address], 11/09/2024 07:08:40 11/08/19 25 11/09/2024 BMP7+ EGFR carbon dioxide, total 24 mmol/ L Not Available [facility] ([facility]) [address] [facility], [place], [address], 11/09/2024 07:08:40 11/08/19 25 11/08/2024 CBC WITH DIFFE RENTI AL/PL ATELE T WBC 7.5 x10e3 /uL 3.4-10 .8 Not Available [facility] ([facility]) [address] [facility], [place], [address], 11/09/2024 07:08:41 11/08/19 25 11/08/2024 CBC WITH DIFFE RENTI AL/PL ATELE T RBC 3.94 x10e6 /uL 3.77-5 .28 Not Available [facility] ([facility]) [address] [facility], [place], [address], 11/09/2024 07:08:41 11/08/19 25 11/08/2024 CBC WITH DIFFE RENTI AL/PL ATELE T hemoglobin 12.1 g/dL 11.1-1 5.9 Not Available [facility] ([facility]) [address] [facility], [place], [address], 11/09/2024 07:08:41 11/08/19 25 11/08/2024 CBC WITH DIFFE RENTI AL/PL ATELE T hematocrit 36.3 % 34.0-4 6.6 Not Available [facility] ([facility]) [address] [place], [address], 11/09/2024 07:08:41 11/08/19 25 11/08/2024 CBC WITH DIFFE RENTI AL/PL ATELE T MCV 92 fL 79-97 Not Available [facility] ([facility]) [address] [place], [address], 11/09/2024 07:08:41 11/08/1911/08/2024 CBC WITH DIFFE RENTI AL/PL ATELE T MCH 30.7 pg 26.6-3 3.0 Not Available [facility] ([facility]) [address] [facility], [place], [address], 11/09/2024 07:08:41 11/08/19 25 11/08/2024 CBC WITH DIFFE RENTI AL/PL ATELE T MCHC 33.3 g/dL 31.5-3 5.7 Not Available [facility] ([facility]) [address] [facility], [place], [address], 11/09/2024 07:08:41 11/08/19 25 11/08/2024 CBC WITH DIFFE RENTI AL/PL ATELE T RDW 12.5 % 11.7-1 5.4 Not Available [facility] ([facility]) [address] [facility], [place], [address], 11/09/2024 07:08:41 11/08/19 25 11/08/2024 CBC WITH DIFFE RENTI AL/PL ATELE T platelets 315 x10e3 /uL 150-45 0 Not Available [facility] ([facility]) [address] [facility], [place], [address], 11/09/2024 07:08:41 11/08/19 25 11/08/2024 CBC WITH DIFFE RENTI AL/PL ATELE T neutrophils 50 % notest ab. Not Available [facility] ([facility]) [address] [facility], [place], [address], 11/09/2024 07:08:41 11/08/19 25 11/08/2024 CBC WITH DIFFE RENTI AL/PL ATELE T lymphs 34 % notest ab. Not Available [facility] ([facility]) [address] [facility], [place], [address], 11/09/2024 07:08:41 11/08/19 25 11/08/2024 CBC WITH DIFFE RENTI AL/PL ATELE T monocytes 8 % notest ab. Not Available [facility] ([facility]) [address] [facility], [place], [address], 11/09/2024 07:08:41 11/08/19 25 11/08/2024 CBC WITH DIFFE RENTI AL/PL ATELE T eos 6 % notest ab. Not Available [facility] ([facility]) [address] [facility], [place], [address], 11/09/2024 07:08:41 11/08/19 25 11/08/2024 CBC WITH DIFFE RENTI AL/PL ATELE T basos 2 % notest ab. Not Available [facility] ([facility]) [address] [facility], [place], [address], 11/09/2024 07:08:41 11/08/19 25 11/08/2024 CBC WITH DIFFE RENTI AL/PL ATELE T neutrophils (absolute) 3.8 x10e3 /uL 1.4-7. 0 Not Available [facility] ([facility]) [address] [facility], [place], [address], 11/09/2024 07:08:41 11/08/19 25 11/08/2024 CBC WITH DIFFE RENTI AL/PL ATELE T lymphs (absolute) 2.5 x10e3 /uL 0.7-3. 1 Not Available [facility] ([facility]) [address] [facility], [place], [address], 11/09/2024 07:08:41 11/08/19 25 11/08/2024 CBC WITH DIFFE RENTI AL/PL ATELE T monocytes(ab solute) 0.6 x10e3 /uL 0.1-0. 9 Not Available [facility] ([facility]) [address] [place], [address], 11/09/2024 07:08:41 11/08/19 25 11/08/2024 CBC WITH DIFFE RENTI AL/PL ATELE T eos (absolute) 0.4 x10e3 /uL 0.0-0. 4 Not Available [facility] ([facility]) [address] [place], [address], 11/09/2024 07:08:41 11/08/19 25 11/08/2024 CBC WITH DIFFE RENTI AL/PL ATELE T baso (absolute) 0.1 x10e3 /uL 0.0-0. 2 Not Available [facility] ([facility]) [address] [facility], [place], [address], 11/09/2024 07:08:41 11/08/19 25 11/08/2024 CBC WITH DIFFE RENTI AL/PL ATELE T immature granulocytes 0 % notest ab. Not Available [facility] ([facility]) [address] [facility], [place], [address], 11/09/2024 07:08:41 11/08/19 25 11/08/2024 CBC WITH DIFFE RENTI AL/PL ATELE T immature grans (abs) 0.0 x10e3 /uL 0.0-0. 1 Not Available [facility] ([facility]) [address] [facility], [place], [address], 11/09/2024 07:08:41 11/08/19 25 11/09/2024 TRIIO DOTHY KAT E (T3), FREE triiodothyro nine (T3), free 2.4 pg/mL 2.0-4. 4 Not Available [facility] ([facility]) [address] [place], [address], 11/09/2024 07:08:42 01/19/20 25 01/19/2025 TSH+F REE T4 TSH 3.220 uIU/m L 0.450- 4.500 Not Available [facility] ([facility]) [address] [place], [address], 01/19/2025 07:12:44 01/19/20 25 01/19/2025 TSH+F REE T4 T4,free(dire ct) 1.40 NG/dL 0.82-1 .77 Not Available [facility] ([facility]) [address] [place], [address], 01/19/2025 07:12:44 01/19/20 25 01/19/2025 HEPAT IC FUNCT ION PANEL (7) protein, total 6.7 g/dL 6.0-8. 5 Not Available [facility] ([facility]) [address] [place], [address], 01/19/2025 07:12:45 01/19/20 25 01/19/2025 HEPAT IC FUNCT ION PANEL (7) albumin 4.4 g/dL 3.9-4. 9 Not Available [facility] ([facility]) [address] [place], [address], 01/19/2025 07:12:45 01/19/20 25 01/19/2025 HEPAT IC FUNCT ION PANEL (7) bilirubin, total 0.4 mg/dL 0.0-1. 2 Not Available [facility] ([facility]) [address] [place], [address], 01/19/2025 07:12:45 01/19/20 25 01/19/2025 HEPAT IC FUNCT ION PANEL (7) bilirubin, direct 0.12 mg/dL 0.00-0 .40 Not Available [facility] ([facility]) [address] [place], [address], 01/19/2025 07:12:45 01/19/20 25 01/19/2025 HEPAT IC FUNCT ION PANEL (7) alkaline phosphatase 124 IU/L 44-121 above high normal Not Available [facility] ([facility]) [address] [place], [address], 01/19/2025 07:12:45 01/19/20 25 01/19/2025 HEPAT IC FUNCT ION PANEL (7) AST (SGOT) 22 IU/L 0-40 Not Available [facility] ([facility]) [address] [place], [address], 01/19/2025 07:12:45 01/19/20 25 01/19/2025 HEPAT IC FUNCT ION PANEL (7) ALT (SGPT) 14 IU/L 0-32 Not Available [facility] ([facility]) [address] [place], [address], 01/19/2025 07:12:45 01/19/20 25 01/19/2025 BMP7+ EGFR glucose 86 mg/dL 70-99 Not Available [facility] ([facility]) [address] [place], [address], 01/19/2025 07:12:46 01/19/20 25 01/19/2025 BMP7+ EGFR BUN 18 mg/dL 8-27 Not Available [facility] ([facility]) [address] [place], [address], 01/19/2025 07:12:46 01/19/20 25 01/19/2025 BMP7+ EGFR creatinine 1.03 mg/dL 0.57-1 .00 above high normal Not Available [facility] ([facility]) [address] [place], [address], 01/19/2025 07:12:46 01/19/20 25 01/19/2025 BMP7+ EGFR eGFR 59 mL/mi n/1.7 3 >59 below low normal Not Available [facility] ([facility]) [address] [facility], [place], [address], 01/19/2025 07:12:46 01/19/20 25 01/19/2025 BMP7+ EGFR sodium 142 mmol/ L 134-14 4 Not Available [facility] ([facility]) [address] [place], [address], 01/19/2025 07:12:46 01/19/20 25 01/19/2025 BMP7+ EGFR potassium 4.7 mmol/ L 3.5-5. 2 Not Available [facility] ([facility]) [address] [place], [address], 01/19/2025 07:12:46 01/19/20 25 01/19/2025 BMP7+ EGFR chloride 103 mmol/ L 96-106 Not Available [facility] ([facility]) [address] [facility], [place], [address], 01/19/2025 07:12:46 01/19/20 25 01/19/2025 BMP7+ EGFR carbon dioxide, total 23 mmol/ L 20-29 Not Available [facility] ([facility]) [address] [facility], [place], [address], 01/19/2025 07:12:46 01/19/20 25 01/18/2025 CBC WITH DIFFE RENTI AL/PL ATELE T WBC 7.6 x10e3 /uL 3.4-10 .8 Not Available [facility] ([facility]) [address] [facility], [place], [address], 01/19/2025 07:12:47 01/19/20 25 01/18/2025 CBC WITH DIFFE RENTI AL/PL ATELE T RBC 4.15 x10e6 /uL 3.77-5 .28 Not Available [facility] ([facility]) [address] [facility], [place], [address], 01/19/2025 07:12:47 01/19/20 25 01/18/2025 CBC WITH DIFFE RENTI AL/PL ATELE T hemoglobin 12.8 g/dL 11.1-1 5.9 Not Available [facility] ([facility]) [address] [facility], [place], [address], 01/19/2025 07:12:47 01/19/20 25 01/18/2025 CBC WITH DIFFE RENTI AL/PL ATELE T hematocrit 38.8 % 34.0-4 6.6 Not Available [facility] ([facility]) [address] [place], [address], 01/19/2025 07:12:47 01/19/20 25 01/18/2025 CBC WITH DIFFE RENTI AL/PL ATELE T MCV 94 fL 79-97 Not Available [facility] ([facility]) [address] [facility], [place], [address], 01/19/2025 07:12:47 01/19/20 25 01/18/2025 CBC WITH DIFFE RENTI AL/PL ATELE T MCH 30.8 pg 26.6-3 3.0 Not Available [facility] ([facility]) [address] [facility], [place], [address], 01/19/2025 07:12:47 01/19/20 25 01/18/2025 CBC WITH DIFFE RENTI AL/PL ATELE T MCHC 33.0 g/dL 31.5-3 5.7 Not Available [facility] ([facility]) [address] [facility], [place], [address], 01/19/2025 07:12:47 01/19/20 25 01/18/2025 CBC WITH DIFFE RENTI AL/PL ATELE T RDW 13.1 % 11.7-1 5.4 Not Available [facility] ([facility]) [address] [facility], [place], [address], 01/19/2025 07:12:47 01/19/20 25 01/18/2025 CBC WITH DIFFE RENTI AL/PL ATELE T platelets 314 x10e3 /uL 150-45 0 Not Available [facility] ([facility]) [address] [facility], [place], [address], 01/19/2025 07:12:47 01/19/20 25 01/18/2025 CBC WITH DIFFE RENTI AL/PL ATELE T neutrophils 52 % notest ab. Not Available [facility] ([facility]) [address] [facility], [place], [address], 01/19/2025 07:12:47 01/19/20 25 01/18/2025 CBC WITH DIFFE RENTI AL/PL ATELE T lymphs 36 % notest ab. Not Available [facility] ([facility]) [address] [facility], [place], [address], 01/19/2025 07:12:47 01/19/20 25 01/18/2025 CBC WITH DIFFE RENTI AL/PL ATELE T monocytes 8 % notest ab. Not Available [facility] ([facility]) [address] [facility], [place], [address], 01/19/2025 07:12:47 01/19/20 25 01/18/2025 CBC WITH DIFFE RENTI AL/PL ATELE T eos 3 % notest ab. Not Available [facility] ([facility]) [address] [facility], [place], [address], 01/19/2025 07:12:47 01/19/20 25 01/18/2025 CBC WITH DIFFE RENTI AL/PL ATELE T basos 1 % notest ab. Not Available [facility] ([facility]) [address] [facility], [place], [address], 01/19/2025 07:12:47 01/19/20 25 01/18/2025 CBC WITH DIFFE RENTI AL/PL ATELE T neutrophils (absolute) 3.9 x10e3 /uL 1.4-7. 0 Not Available [facility] ([facility]) [address] [place], [address], 01/19/2025 07:12:47 01/19/20 25 01/18/2025 CBC WITH DIFFE RENTI AL/PL ATELE T lymphs (absolute) 2.8 x10e3 /uL 0.7-3. 1 Not Available [facility] ([facility]) [address] [place], [address], 01/19/2025 07:12:47 01/19/20 25 01/18/2025 CBC WITH DIFFE RENTI AL/PL ATELE T monocytes(ab solute) 0.6 x10e3 /uL 0.1-0. 9 Not Available [facility] ([facility]) [address] [place], [address], 01/19/2025 07:12:47 01/19/20 25 01/18/2025 CBC WITH DIFFE RENTI AL/PL ATELE T eos (absolute) 0.2 x10e3 /uL 0.0-0. 4 Not Available [facility] ([facility]) [address] [facility], [place], [address], 01/19/2025 07:12:47 01/19/20 25 01/18/2025 CBC WITH DIFFE RENTI AL/PL ATELE T baso (absolute) 0.1 x10e3 /uL 0.0-0. 2 Not Available [facility] ([facility]) [address] [facility], [place], [address], 01/19/2025 07:12:47 01/19/20 25 01/18/2025 CBC WITH DIFFE RENTI AL/PL ATELE T immature granulocytes 0 % notest ab. Not Available [facility] ([facility]) [address] [facility], [place], [address], 01/19/2025 07:12:47 01/19/20 25 01/18/2025 CBC WITH DIFFE RENTI AL/PL ATELE T immature grans (abs) 0.0 x10e3 /uL 0.0-0. 1 Not Available [facility] ([facility]) [address] [facility], [place], [address], 01/19/2025 07:12:47 01/19/20 25 01/19/2025 TRIIO DOTHY KAT E (T3), FREE triiodothyro nine (T3), free 2.5 pg/mL 2.0-4. 4 Not Available [facility] ([facility]) [address] [place], [address], 01/19/2025 07:12:48 04/30/20 24 04/30/2024 CT, angio gram, chest + abdom en + pelvi s, w/ contr ast No observ ation record ed. [email or web address] [facility] [address], [place], [address], 05/23/2024 10:39:04 07/08/20 24 06/27/2024 exerc isgeovani oliva s echoc ardio gram No observ ation record ed. [facility] ([facility]) [address] [facility] [address], [place], [address], 07/08/2024 20:35:50 02/10/20 25 02/09/2025 US, kidne y No observ ation record ed. [facility] [address] [facility] [address], [place], [address], 02/12/2025 16:22:02 Result Notes None recorded. Problems Name Problem SNOMED Code Status Onset Date Resolution Date Notes Provider Name and Address Organization Details Recorded Time Hypothyroidism 09921674 Active 2023 VALERIANO Vallejo Attn: Chris quintana,[address] [facility], [place], [address], [place] - [facility] 4 17:53:14 Hyperlipidemia 61385820 Active 2023 VALERIANO Vallejo Attn: Chris quintana,[address] [facility], [place], [address], [place] 4 17:53:15 Long-term drug therapy Active 2023 VALERIANO Vallejo Attn: Chris quintana,[address] [facility], [place], [address], [place] 4 17:53:17 Body mass index 25-29 - overweight 411657086 Active 2023 VALERIANO Vallejo Attn: Chris quintana,[address] [facility], [place], [address], [place] 4 17:54:21 Overweight 639850160 Active 2023 VALERIANO Vallejo Attn: Chris quintana,[address] [facility], [place], [address], [place] 4 15:42:06 Elevated blood-pressure reading without diagnosis of hypertension 766328570 Active 2023 VALERIANO Vallejo Attn: Chris quintana,[address], [place], [address], [place] [facility] 4 15:42:29 Mammogram declined 630325816 Active 2024 VALERIANO Vallejo Attn: Chris quintana,[address], [place], [address], [place] 5 15:02:17 Serum creatinine above reference range 981115285 Active 2024 VALERIANO Vallejo Attn: Chris quintana,[address], [place], [address], [place] 5 15:54:44 Problem Notes None recorded. Procedures Surgical History Date Name Laterality Status Provider Name and Address Organization Details Recorded Time Eye Surgery completed Deborah Wild MA [place] - [place] 01/13/2024 10:21:08 Breast Surgery completed Deborah Wild MA [facility] 01/13/2024 10:21:14 excision of bilateral fallopian tubes and ovaries completed Deborah Wild MA [facility] 01/13/2024 10:21:39 Imaging Results Imaging Date Name Status LastModified by Organization Details LastModified Time 04/30/2024 CT, angiogram, chest + abdomen + pelvis, w/ contrast completed [address] [place] [address], [address], 05/23/2024 10:39:04 06/27/2024 exercise stress echocardiogram completed [facility] ([facility]iology [facility]) [address] [place] [address] [place] [address], [address], 07/08/2024 20:35:50 02/09/2025 US, kidney completed [address], [address], 02/12/2025 16:22:02 Procedure Notes None recorded. Medical Equipment None [...] Updated DateTime 4 157.48 cm 29.4 kg/m2 59207.3 7 g 20 /min 97 % 97 % 72 /min 132 mm[Hg] 88 mm[Hg] Deborah Wild [place] - [facility] 4 09:13:24 Date Recorded Systolic blood pressure Diastolic blood pressure Provider Name and Address Organization Details Last Updated DateTime 01/13/2024 140 mm[Hg] 80 mm[Hg] VALERIANO Vallejo Attn: Accounting,[address] [place], [address], [place] - [facility] 01/13/2024 09:37:15 Date Recorded Body height Body mass index (BMI) Body weight Respiratory rate Oxygen saturation Oxygen saturation in Arterial blood by Pulse oximetry Heart rate Systolic blood pressure Diastolic blood pressure Provider Name and Address Organization Details Last Updated DateTime 4 157.48 cm 26.5 kg/m2 51094.8 9 g 20 /min 98 % 98 % 61 /min 140 mm[Hg] 78 mm[Hg] Deborah Wild MA [facility] 4 11:40:35 Date Recorded Body height Body mass index (BMI) Body weight Respiratory rate Heart rate Oxygen saturation Oxygen saturation in Arterial blood by Pulse oximetry Systolic blood pressure Diastolic blood pressure Provider Name and Address Organization Details Last Updated DateTime 4 157.48 cm 26.2 kg/m2 23277.1 4 g 16 /min 67 /min 98 % 98 % 140 mm[Hg] 88 mm[Hg] Sobeida Dobbs [facility] 4 10:30:31 Date Recorded Systolic blood pressure Diastolic blood pressure Systolic blood pressure Diastolic blood pressure Provider Name and Address Organization Details Last Updated DateTime 05/23/2024 130 mm[Hg] 82 mm[Hg] 142 mm[Hg] 82 mm[Hg] VALERIANO Vallejo Attn: Accounting ,[address] [place], [address] , [place] - [facility] 4 10:57:21 Date Recorded Body height Body mass index (BMI) Body weight Respiratory rate Oxygen saturation Oxygen saturation in Arterial blood by Pulse oximetry Heart rate Systolic blood pressure Diastolic blood pressure Provider Name and Address Organization Details Last Updated DateTime 4 157.48 cm 26.6 kg/m2 74486.4 1 g 18 /min 99 % 99 % 64 /min 130 mm[Hg] 82 mm[Hg] Deborah Wild MA [facility] 4 12:01:26 Date Recorded Body height Body mass index (BMI) Body weight Oxygen saturation Oxygen saturation in Arterial blood by Pulse oximetry Heart rate Systolic blood pressure Diastolic blood pressure Provider Name and Address Organization Details Last Updated DateTime 5 157.48 cm 26.7 kg/m2 70182.4 9 g 99 % 99 % 58 /min 126 mm[Hg] 82 mm[Hg] Deborah Wild MA [facility] 14:49:05 Date Recorded Systolic blood pressure Diastolic blood pressure Provider Name and Address Organization Details Last Updated DateTime 01/25/2025 130 mm[Hg] 80 mm[Hg] VALERIANO Vallejo Attn: Accounting,[address] [facility], [place], [address], [facility] 01/25/2025 15:07:18 Social History Question Answer Notes LastModified by Organizat ion Details LastModified Time Tobacco Smoking Status Never Smoker Deborah Wild MA [email or web address], [facility] 01/13/2024 09:10:21 Do You Have An Advance Directive? No Information n ot available 01/13/2024 Are You Blind Or Do [...] No Information not available 01/13/2024 Are You Deaf Or Do You Have [...] Counseling Provided? 01/25/2025 Information not available 01/25/2025 Sex: Female Functional Status Question Answer Note LastModified by Organizat ion Details LastModified Time Do you use any illicit or recreational drugs? No Information not available 01/13/2024 Do you or have you ever used any other forms of tobacco or nicotine? No Information not available 01/13/2024 What is your level of alcohol consumption? None Information not available 01/13/2024 Are you currently employed? No Information not available 01/25/2025 Are you able to care for yourself? Yes Information not available 01/13/2024 What is your exercise level? [...] Skin Problems N Anemia N Heart Attack ([place]) N Anxiety Disorder N Diabetes N Muscle, [...] Time Influenza, high-dose, trivalent, PF 3 completed Deborah Wild MA kvng, [facility] 01/25/2025 14:47:01 Influenza, split virus, trivalent, preservative 3 completed Deborah Wild MA kvng, [facility] 01/25/2025 14:47:01 Past Encounters Encounter ID Performer Location Encounter Start Date Encounter Closed Date Diagnosis/Indication Diagnosis SNOMED-CT Code Diagnosis ICD10 Code Diagnosis Note [id number] Jackson Elliott MD [facility] [employer] [address] [place] [address] 01/13/2024 08:57:53 01/13/2024 09:52:38 Hypothyroidism 20283164 E03.9 patient is stable on levothyrox ine 88mcg daily. due for updated thyroid functio labs. Long-term drug therapy 448221016 Z79.899 routine cbc, hepatic and bmp panels. Hyperlipidemia 42495443 E78.5 hx of elevated lipids. pt declines any medication therapy. aware of recommenda tions for CAD/CVD risk reduction. Elevated blood-pressure reading without diagnosis of hypertension 084320760 R03.0 140/80: borderline BP on evaluation today. Patient will f/u in march for repeat BP evaluation . she will resume her usual exercise routine that has been lacking as of late. Body mass index 25-29 - overweight 073283876 Z68.29 discussed healthy diet, exercise, controllin g carbohydra jess and added sugars in the diet. Resume prior exercise routine to help with bp weight and blood pressure management . [id number] Jackson Elliott MD [facility] [employer] [address] [place] [address] 03/17/2024 11:15:38 04/11/2024 15:36:33 Hypothyroidism 90671438 E03.9 pt does need updated labs. check TFT panel. pt is taking levothyrox ine 75mcg daily. Hyperlipidemia 62521904 E78.5 hx of elevated lipids. pt declines any medication therapy. aware of recommenda tions for CAD/CVD risk reduction. Long-term drug therapy 102851280 Z79.899 routine hepatic and bmp panels due in jun. Elevated blood-pressure reading without diagnosis of hypertension 644855021 R03.0 140/78: borderline BP on evaluation today. Patient will f/u in march for repeat BP evaluation . she will resume her usual exercise routine that has been lacking as of late. Body mass index 25-29 - overweight 181637342 Z68.29 discussed healthy diet, exercise, controllin g carbohydra jess and added sugars in the diet. Resume prior exercise routine to help with bp weight and blood pressure management . [id number] Jackson Elliott MD [facility] [employer] [address] [place] [address] 05/23/2024 10:15:01 05/23/2024 11:22:08 Body mass index 25-29 - overweight 530657329 Z68.29 Dyspnea 428917752 R06.00 Dyspnea reported and reason for recent hospital ER visit. We will refer her for an exercise stress echo to evaluate cardiac status Folliculitis 96223026 L7 3.9 Start doxycyclin e 100 mg twice daily with meal times 10 days [id number] Jackson Elliott MD [facility] [employer] [address] [place] [address] 07/14/2024 11:15:34 07/14/2024 12:32:59 Hypothyroidism 68364408 E03.9 There is room to increase the T for a bit and decreased TSH. We will boost her levothyrox ine to 88 mcg daily and repeat labs in October. Hyperlipidemia 55702108 E78.5 hx of elevated lipids. pt declines any medication therapy. aware of recommenda tions for CAD/CVD risk reduction. Fasting lipid panel due in October Long-term drug therapy 059242928 Z79.899 Metabolic panel and CBC due in October Body mass index 25-29 - overweight 755352994 Z68.29 BMI is 26.6. Patient is eating healthy and exercising routinely there are no acute concerns about her BMI Overweight 770347595 E66 .3 Continue excellent exercise and dietary management Elevated blood-pressure reading without diagnosis of hypertension 813961574 R03.0 Patient's blood pressure is improved and stable today. [id number] Jackson Elliott MD [facility] [employer] [address] [place] [address] 01/25/2025 14:32:19 01/25/2025 15:55:13 Body mass index 25-29 - overweight 533972282 Z68.29 BMI is 26.7. Patient is eating healthy and exercising routinely there are no acute concerns about her BMI Hypothyroidism 20344129 E03.9 Stable on thyroid dosing, levothyrox ine 75 mcg daily. Due for updated labs in July Overweight 293954883 E66 .3 Continue excellent exercise and dietary management Hyperlipidemia 42443671 E78.5 hx of elevated lipids. pt declines any medication therapy. aware of recommenda tions for CAD/CVD risk reduction. Repeat labs fasting due in July Long-term drug therapy 159386236 Z79.899 CBC, BMP and liver function due in July Serum crea tinine above reference range 703544151 R79.89 Creatinine is at 1.03. Though this is very my newly elevated patient is concerned about it since it has not been a problem in the past. Her blood pressure is also stable and she has. Will refer for a baseline ultrasound of the kidneys. Mammogram declined 34876 5004 Z53.20 Patient is aware of guidelines and recommenda tions and wear of risks of not screening Eruption 154794956 R21 Refer to dermatolog y for rash that is more macular slightly papular in nature that is pruritic and comes and goes more so on the torso. We will also give triamcinol one 0.1% cream to apply as directed Health Concerns Section Related Observation LastModified by Organization Detai ls LastModified Time None Recorded Concern Status LastModified by Organization Details LastModified Time None Recorded Advance Directives Directive N: Payers Encounter Date Sequence Insurance Name Policy Number Policy Whitney Covered Member ID Whitney Member ID Guarantor Name 01/13/2024 1 [place] Baylee K [place] [id number] Baylee [place] 01/13/2024 2 [employer] (MEDICARE SUPPLEMENT) Baylee K [place] [id number] Baylee Carlos 03/17/2024 2 [employer] (MEDICARE SUPPLEMENT) Baylee K [place] [id number] Baylee [place] 03/17/2024 [place] [facility] [facility] Baylee Carlos [id number] Baylee Menifee 05/23/2024 1 [place] Baylee K Carlos [id number] Baylee Carlos 05/23/2024 2 [place] (MEDICARE SUPPLEMENT) Baylee Menifee [id number] Baylee Menifee 07/14/2024 1 [place] Baylee K Menifee [id number] Baylee Menifee 07/14/2024 2 [place] (MEDICARE SUPP[place]MENT) Baylee Menifee [id number] Baylee Carlos 01/25/2025 1 [place] Baylee K Menifee [id number] Baylee Menifee 01/25/2025 2 [place] (MEDIC[place] SUPPLEMENT) Baylee Menifee [id number] Baylee Menifee Notes Date Note Type Note Provider Name and Address Organization Details Recorded Time 4 text/html ThyroidReported bypatient.Quality:improving Severity:mild Duration:constant Onset/Timing:better Context:history of hypothyroidism Modifying Factors:medication Exercisegets exercise; walks 5 times per week; other types of exercise: Associated Symptoms:weight gain ( lbs);increased blood pressure VALERIANO Vallejo Attn: Accounting[address] [place], [address], [facility] 01/24/2024 17:54:36 4 text/html HyperlipidemiaReported bypatient.Notes:pt has [...] appt in VALERIANO Vallejo Attn: Accounting[address] [facility], [place], [address], [facility] 04/10/2024 15:55:04 4 text/html Generic HPI TemplateReported [...] the episode. VALERIANO Vallejo Attn: Accounting[address] [facility], [place], [address], [facility] 06/11/2024 17:36:52 4 text/html HyperlipidemiaReported bypatient.Notes:pt has [...] environment often. VALERIANO Vallejo Attn: Accounting[address] [facility], [place], [address], [facility] 08/07/2024 15:42:43 5 text/html HyperlipidemiaReported bypatient.Notes:pt has hx of LDL [...] run elevated in the clinical environment often. Serum creatinine on labs is running a little bit elevated to be discussed on current labs. VALERIANO Vallejo Attn: Accounting[address] [place], [address], [facility] 02/12/2025 15:55:36 OBGyn Episode No OBEpisode recorded.
--- OUTSIDE RECORDS SUMMARY | 2025-02-20 14:56 | XMS_ITS | Referral Summary ---
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
[2025-02-20 15:17] LABS: Estimated Glomerular Filt Rate 55
== END 2025-02-20 14:48 | disposition home or self-care (01) ==
PROVIDERS: PCP Physician Assistant; Visit Provider Physician Assistant
DX: R93.429 Abnormal radiologic findings on diagnostic imaging of unspecified kidney (principal)
CPT/HCPCS: 74178; Q9967